=== PATIENT | female | born 1980 | race African-American/Black ===

== ENCOUNTER 2016-12-09 18:37 | Emergency (ER) | payer BC, OTHER ==
[~2016-12-09] VITALS: Ht 167.6 cm; Wt 98.9 kg
[2016-12-09] MEDS ORDERED: UNOBMED (18:41)
[2016-12-09] MEDS ORDERED: NS 250 ML IVPB ONE (19:15)
[2016-12-09] MEDS ORDERED: Metoclopramide 10mg/2ml Inj IVP ONE (19:15)
--- NOTE | 2016-12-09 19:20 | Emergency Room Report ---
History of Present Illness General Chief Complaint: Vomiting Source: Patient (Dyana Patricia) Present Illness HPI 36 YO Female presents to the ED c/o N/V 06/14 migraine since this am. with hx of cyclical vomiting syndrome, and migraine . Pt noted to have hx of HTN and states she was just recently put onto BP medication unknown name. pt. states she is seen by Dr. Murrieta at [facility], and is RX'd Amitryptiline and Zofran/Reglan regularly. denies fevers or chills. reports last migraine was 3 days ago, and last ED visit was last week. pt. denies recent travel or contacts with similar symptoms. LMP 2 weeks ago. denies . no rashes. DOWNEY is pulsatile located frontally Pt states N/V preceded migraine DOWNEY. Reports progressive onset , and states DOWNEY is characteristic of her normal migraine DOWNEY's. Denies trauma. Denies CP, Palpitations, LOC, AMS, dizziness, Changes in Vision, Sensation, paresthesias, or a sudden onset severe headache. (Dyana Patricia) Allergies: Coded Allergies: NITROFURANTOIN (Verified Allergy, Unknown, 12/09/16) Patient History Past Medical History: see triage record Past Surgical History: none Pertinent Family History: none Last Menstrual Period: 2 weeks ago Now: No : 7 Para: 1 Reviewed Nursing Documentation: PMH: Agreed, PSxH: Agreed (Dyana Patricia) Nursing Documentation-PMH Past Medical History: No History, Except For Hx Hypertension: Yes Hx Diabetes: Yes - DM2 (Dyana Patricia) Review of Systems All Other Systems: negative except mentioned in HPI (Dyana Patricia) Physical Exam Vital Signs Date Time Temp Pulse Resp B/P Pulse Ox O2 Delivery O2 Flow Rate FiO2 12/09/16 18:37 98.2 109 18 183/117 98 Room Air Sp02 EP Interpretation: abnormal - tachycardic and HTN General Appearance: GCS 15, mild distress Head: normocephalic, atraumatic Eyes: bilateral eye EOMI, bilateral eye PERRL, bilateral eye normal inspection ENT: hearing grossly normal, normal pharynx, no angioedema, normal voice Neck: full range of motion, no meningismus, no bony tend, supple/symm/no masses Respiratory: lungs clear, normal breath sounds, speaking full sentences Cardiovascular #1: regular rate, rhythm, no edema Gastrointestinal: normal bowel sounds, soft, no guarding, no rebound, other - epigastric TTP, abdomen is soft. Rectal: deferred Musculoskeletal: back normal, gait/station normal, normal range of motion, non- tender, no calf tenderness Neurologic: alert, oriented x3, responsive, motor strength/tone normal, sensory intact, speech normal Psychiatric: judgement/insight normal, memory normal, mood/affect normal Skin: normal color, no rash, warm/dry, well hydrated Lymphatic: no adenopathy (Dyana Patricia) Medical Decision Making PA Attestation Dr. moody is my supervising Physician whom patient management has been discussed with. (Dyana Patricia PGill) Diagnostic Impression: Primary Impression: Vomiting Qualified Codes: G43.A0 - Cyclical vomiting, not intractable Additional Impression: Migraine Qualified Codes: G43.001 - Migraine without aura, not intractable, with status migrainosus ER Course 36 YO Female presents to the ED c/o N/V 06/14 migraine since this am. with hx of cyclical vomiting syndrome, and migraine . Pt noted to have hx of HTN and states she was just recently put onto BP medication unknown name. pt. states she is seen by Dr. Murrieta at [facility], and is RX'd Amitryptiline and Zofran/Reglan regularly. -Denies fevers or chills. reports last migraine was 3 days ago, and last ED visit was last week. pt. denies recent travel or contacts with similar symptoms. LMP 2 weeks ago. Denies . no rashes. DOWNEY is pulsatile located frontally -Pt states N/V preceded migraine DOWNEY. Reports progressive onset, and states DOWNEY is characteristic of her normal migraine DOWNEY's. Denies trauma. Ddx considered but are not limited to migraine, HTN urgency/emergency, CVA, Diverticulitis, acute appy, diarrhea,UC, PUD, GE, pancreatitis, gallstone Vital signs: pt. is afebrile, Tachycardic and hypertensive- H&PE are most consistent with Hypovolemia and diarrhea ORDERS: CBC, CMP: elevated WBC's at 14.8, elevated glucose at 180, low chloride. - lipase is unremarkable. - UA: 3+ ketones, no wbc's or bacteria -Urine Hcg: Negative. ED INTERVENTIONS: - 10mg Hydralazine -10mg Reglan IV - 30mg IV Toradol -4mg morphine IV - 4 mg Zofran IV Disposition: Pt. is signed out to Dr. Hall who will continue pt. care management. Labs Test 12/09/16 18:56 12/09/16 19:15 Urine Color Pale yellow Urine Appearance Clear Urine pH 7 (4.5-8.0) Urine Specific [place] 1.010 (1.005-1.035) Urine Protein 2+ (NEGATIVE) Urine Glucose (UA) Negative (NEGATIVE) Urine Ketones 3+ (NEGATIVE) Urine Occult Blood 1+ (NEGATIVE) Urine Nitrite Negative (NEGATIVE) Urine Bilirubin Negative (NEGATIVE) Urine Urobilinogen Normal MG/DL (0.0-1.0) Urine Leukocyte Esterase 1+ (NEGATIVE) Urine RBC 2-4 /HPF (0 - 2) Urine WBC 0-2 /HPF (0 - 2) Urine Squamous Epithelial Cells Few /LPF (NONE/OCC) Urine Bacteria Few /HPF (NONE) Urine Opiates Screen Negative (NEGATIVE) Urine Barbiturates Screen Negative (NEGATIVE) Phencyclidine (PCP) Screen Negative (NEGATIVE) Urine Amphetamines Screen Negative (NEGATIVE) Urine Benzodiazepines Screen Negative (NEGATIVE) Urine Cocaine Screen Negative (NEGATIVE) Urine Marijuana (THC) Screen Negative (NEGATIVE) White Blood Count 14.8 K/UL (4.8-10.8) Red Blood Count 4.55 M/UL (4.20-5.40) Hemoglobin 14.5 G/DL (12.0-16.0) Hematocrit 40.4 % (37.0-47.0) Mean Corpuscular Volume 89 FL (80-99) Mean Corpuscular Hemoglobin 31.8 PG (27.0-31.0) Mean Corpuscular Hemoglobin Concent 35.8 G/DL (32.0-36.0) Red Cell Distribution Width 12.6 % (11.6-14.8) Platelet Count 364 K/UL (150-450) Mean Platelet Volume 6.6 FL (6.5-10.1) Neutrophils (%) (Auto) 78.6 % (45.0-75.0) Lymphocytes (%) (Auto) 13.1 % (20.0-45.0) Monocytes (%) (Auto) 4.5 % (1.0-10.0) Eosinophils (%) (Auto) 3.0 % (0.0-3.0) Basophils (%) (Auto) 0.8 % (0.0-2.0) Sodium Level 134 mEQ/L (135-145) Potassium Level 4.0 mEQ/L (3.4-4.9) Chloride Level 92 mEQ/L (98-107) Carbon Dioxide Level 22 mEQ/L (20-30) Anion Gap 20 (5-15) Blood Urea Nitrogen 11 mg/dL (7-23) Creatinine 1.0 mg/dL (0.5-0.9) Estimat Glomerular Filtration Rate > 60 mL/min (>60) Glucose Level 180 mg/dL (74-106) Calcium Level 9.8 mg/dL (8.6-10.2) Total Bilirubin 0.5 mg/dL (0.0-1.2) Aspartate Amino Transf (AST/SGOT) 20 U/L (5-40) Alanine Aminotransferase (ALT/SGPT) 23 U/L (3-33) Alkaline Phosphatase 117 U/L (35-104) Total Protein 9.7 g/dL (6.6-8.7) Albumin 4.7 g/dL (3.5-5.2) Globulin 5.0 g/dL Albumin/Globulin Ratio 0.9 (1.0-2.7) Lipase 41 U/L (< 60) (Dyana Patricia P.A.) ER Course The patient was noted to have continued pain and vomiting. The patient remained tachycardic while emergency department. The patient was given IV fluids. As well as IV Benadryl and Reglan. Patient was noted to have some improvement. The patient be admitted to the hospital for further IV hydration. Patient noted have elevated white blood count. She no evidence of urinary tract infection.Patient was discussed with O physician for [facility] and agreed accept patient in transfer. Labs Test 12/09/16 18:56 12/09/16 19:15 Urine Color Pale yellow Urine Appearance Clear Urine pH 7 (4.5-8.0) Urine Specific [place] 1.010 (1.005-1.035) Urine Protein 2+ (NEGATIVE) Urine Glucose (UA) Negative (NEGATIVE) Urine Ketones 3+ (NEGATIVE) Urine Occult Blood 1+ (NEGATIVE) Urine Nitrite Negative (NEGATIVE) Urine Bilirubin Negative (NEGATIVE) Urine Urobilinogen Normal MG/DL (0.0-1.0) Urine Leukocyte Esterase 1+ (NEGATIVE) Urine RBC 2-4 /HPF (0 - 2) Urine WBC 0-2 /HPF (0 - 2) Urine Squamous Epithelial Cells Few /LPF (NONE/OCC) Urine Bacteria Few /HPF (NONE) Urine Opiates Screen Negative (NEGATIVE) Urine Barbiturates Screen Negative (NEGATIVE) Phencyclidine (PCP) Screen Negative (NEGATIVE) Urine Amphetamines Screen Negative (NEGATIVE) Urine Benzodiazepines Screen Negative (NEGATIVE) Urine Cocaine Screen Negative (NEGATIVE) Urine Marijuana (THC) Screen Negative (NEGATIVE) White Blood Count 14.8 K/UL (4.8-10.8) Red Blood Count 4.55 M/UL (4.20-5.40) Hemoglobin 14.5 G/DL (12.0-16.0) Hematocrit 40.4 % (37.0-47.0) Mean Corpuscular Volume 89 FL (80-99) Mean Corpuscular Hemoglobin 31.8 PG (27.0-31.0) Mean Corpuscular Hemoglobin Concent 35.8 G/DL (32.0-36.0) Red Cell Distribution Width 12.6 % (11.6-14.8) Platelet Count 364 K/UL (150-450) Mean Platelet Volume 6.6 FL (6.5-10.1) Neutrophils (%) (Auto) 78.6 % (45.0-75.0) Lymphocytes (%) (Auto) 13.1 % (20.0-45.0) Monocytes (%) (Auto) 4.5 % (1.0-10.0) Eosinophils (%) (Auto) 3.0 % (0.0-3.0) Basophils (%) (Auto) 0.8 % (0.0-2.0) Sodium Level 134 mEQ/L (135-145) Potassium Level 4.0 mEQ/L (3.4-4.9) Chloride Level 92 mEQ/L (98-107) Carbon Dioxide Level 22 mEQ/L (20-30) Anion Gap 20 (5-15) Blood Urea Nitrogen 11 mg/dL (7-23) Creatinine 1.0 mg/dL (0.5-0.9) Estimat Glomerular Filtration Rate > 60 mL/min (>60) Glucose Level 180 mg/dL (74-106) Calcium Level 9.8 mg/dL (8.6-10.2) Total Bilirubin 0.5 mg/dL (0.0-1.2) Aspartate Amino Transf (AST/SGOT) 20 U/L (5-40) Alanine Aminotransferase (ALT/SGPT) 23 U/L (3-33) Alkaline Phosphatase 117 U/L (35-104) Total Protein 9.7 g/dL (6.6-8.7) Albumin 4.7 g/dL (3.5-5.2) Globulin 5.0 g/dL Albumin/Globulin Ratio 0.9 (1.0-2.7) Lipase 41 U/L (< 60) (Juan Hall) Last Vital Signs Date Time Temp Pulse Resp B/P Pulse Ox O2 Delivery O2 Flow Rate FiO2 12/09/16 18:37 98.2 109 18 183/117 98 Room Air (Dyana Patricia P.ANatividad) Status: unchanged (Juan Hall) Disposition: XFER SHT-TRM HOSP Condition: Serious Signed Out To: Dr. Hall (Dyana Patricia P.ANatividad) Scripts Acetamin/Butalbital/Caffeine* (FIORICET*) 1 Ea Tab 1 TAB ORAL Q6H, #15 TAB 0 Refills Prov: Juan Hall 12/09/16 Ondansetron Odt* (ZOFRAN ODT*) 4 Mg Tab.rapdis 4 MG ORAL Q6H Y for Nausea & Vomiting, #30 TAB 0 Refills Prov: Juan Hall 12/09/16 Dyana Patricia PGill Dec 09, 2016 19:20 Juan Hall Dec 10, 2016 03:15
[2016-12-09 19:49] LABS: BASOPHILS % (AUTO) 0.8 % (0.0-2.0); LYMPHOCYTES % (AUTO) 13.1 % (20.0-45.0); MEAN CORPUSCULAR HEMOGLOBIN 31.8 PG (27.0-31.0); MEAN CORPUSCULAR HGB CONC 35.8 G/DL (32.0-36.0); MEAN CORPUSCULAR VOLUME 89 FL (80-99); MEAN PLATELET VOLUME 6.6 FL (6.5-10.1); MONOCYTES % (AUTO) 4.5 % (1.0-10.0); NEUTROPHILS % (AUTO) 78.6 % (45.0-75.0); PLATELET COUNT 364 K/UL (150-450); RED BLOOD COUNT 4.55 M/UL (4.20-5.40); RED CELL DISTRIBUTION WIDTH 12.6 % (11.6-14.8); WHITE BLOOD COUNT 14.8 K/UL (4.8-10.8)
[2016-12-09 19:54] LABS: APPEARANCE,URINE CLEAR; KETONES,URINE 3+ (NEGATIVE); LEUKOCYTE ESTERASE ,URINE 1+ (NEGATIVE); NITRITE,URINE NEGATIVE (NEGATIVE); PH,URINE 7 (4.5-8.0); PROTEIN,URINE 2+ (NEGATIVE); UROBILINOGEN,URINE NORMAL MG/DL (0.0-1.0)
[2016-12-09 20:03] LABS: ALANINE AMINOTRANSFERASE 23 U/L (3-33); ALBUMIN/GLOBULIN RATIO 0.9 (1.0-2.7); ANION GAP 20 (5-15); ASPARTATE AMINO TRANSFERASE 20 U/L (5-40); CALCIUM 9.8 mg/dL (8.6-10.2); CARBON DIOXIDE 22 mEQ/L (20-30); CHLORIDE 92 mEQ/L (98-107); GLOMERULAR FILTRATION RATE > 60 mL/min (>60); HEMOLYSIS 2; LIPASE 41 U/L (< 60); SODIUM 134 mEQ/L (135-145); TOTAL PROTEIN 9.7 g/dL (6.6-8.7)
[2016-12-09 20:08] LABS: BACTERIA,URINE FEW /HPF; SQUAMOUS EPITHELIAL CELL,UR FEW /LPF (NONE/OCC); WBC,URINE 0-2 /HPF (0 - 2)
[2016-12-09 20:22] VITALS: BP 198/128
[2016-12-09] MEDS ORDERED: Ketorolac 30mg Inj IV ONE (20:30)
[2016-12-09 20:49] VITALS: BP 147/86
[2016-12-09] MEDS ORDERED: DiphenhydrAMINE 50mg/ml Inj IVP ONE (21:15)
[2016-12-09] MEDS ORDERED: Morphine Sulfate 4mg/ml Inj IVP ONE (21:15)
[2016-12-09 22:16] VITALS: BP 121/69
[2016-12-09] MEDS: D5 1/2NS 1,000 ML IV SCH (22:21)
[2016-12-09] MEDS ORDERED: FIORICET1 EA ORAL (22:33)
[2016-12-09] MEDS ORDERED: ZOFRAN ODT4 MG ORAL (22:33)
[2016-12-09 23:13] VITALS: BP 111/67
[2016-12-10] VITALS (7 sets, daily range): BP systolic 100–139; BP diastolic 52–92
[2016-12-10] MEDS ORDERED: DiphenhydrAMINE 50mg/ml Inj IVP ONE (02:30)
[2016-12-10] MEDS ORDERED: Metoclopramide 10mg/2ml Inj IVP ONE (02:30)
[2016-12-10] MEDS: D5 1/2NS 1,000 ML IV SCH (06:20)
--- NOTE | 2016-12-10 15:16 | Diagnostic Imaging Report ---
Indication: PAIN Technique: One view of the chest Comparison: none Findings: Lungs and pleural spaces are clear. Heart size is normal . There is a left arm catheter, tip of which terminates in the left innominate vein Impression: No acute process
== END 2016-12-10 09:34 | disposition short-term general hospital (02) ==
LOC: EDBD 18:37 → EMR 19:36
DX: G43.A0 Cyclical vomiting, in migraine, not intractable (principal); G43.909 Migraine, unspecified, not intractable, without status migrainosus; I10 Essential (primary) hypertension; E11.9 Type 2 diabetes mellitus without complications
CPT/HCPCS: 36415; 71010; 80053; 80300; 81003; 82962; 83690; 85025; 96360; 96374; 96375; 99285; J0360; J1200; J1885; J2270; J2405; J2765; J7050

== ENCOUNTER 2018-08-18 10:41 | Observation (INO) | payer BC, OTHER ==
[~2018-08-18] VITALS: Ht 167.6 cm; Wt 136.1 kg
[~2018-08-18 10:41] MED LIST: FIORICET1 EA ORAL; UNOBMED; ZOFRAN ODT4 MG ORAL
[2018-08-18 10:55] VITALS: BP 188/92
[2018-08-18] MEDS ORDERED: Isovue-300 100ml vial INJ PRN (11:15)
[2018-08-18 12:45] VITALS: BP 161/94
[2018-08-18] MEDS ORDERED: Lidocaine 1% Plain 30 ml INJ ONE (13:00)
[2018-08-18] MEDS ORDERED: Capsaicin 0.075% Cream TOPIC ONE (13:00)
[2018-08-18] MEDS ORDERED: Heparin 2000 units/Ns 1000ml INJ ONE (13:00)
[2018-08-18] MEDS: Ondansetron ODT 8mg tab ORAL ONE ×2 (13:00→13:54)
[2018-08-18 13:06] LABS: EOSINOPHILS % (AUTO) 6.5 % (0.0-3.0); HEMATOCRIT 37.5 % (37.0-47.0); HEMOGLOBIN 12.4 G/DL (12.0-16.0); LYMPHOCYTES % (AUTO) 12.3 % (20.0-45.0); MEAN CORPUSCULAR VOLUME 87 FL (80-99); MONOCYTES % (AUTO) 5.2 % (1.0-10.0); NEUTROPHILS % (AUTO) 75.1 % (45.0-75.0); PLATELET COUNT 349 K/UL (150-450); RED BLOOD COUNT 4.31 M/UL (4.20-5.40); RED CELL DISTRIBUTION WIDTH 11.6 % (11.6-14.8); WHITE BLOOD COUNT 10.8 K/UL (4.8-10.8)
[2018-08-18 13:19] LABS: ANION GAP 10 mmol/L (5-15); BLOOD UREA NITROGEN 12 mg/dL (7-18); CALCIUM 9.3 MG/DL (8.5-10.1); CARBON DIOXIDE 26 MMOL/L (21-32); CHLORIDE 100 MMOL/L (98-107); POTASSIUM 3.9 MMOL/L (3.5-5.1); SODIUM 136 MMOL/L (136-145)
[2018-08-18 13:24] LABS: ALANINE AMINOTRANSFERASE 29 U/L (12-78); ALBUMIN 3.3 G/DL (3.4-5.0); ALBUMIN/GLOBULIN RATIO 0.6 (1.0-2.7); ALKALINE PHOSPHATASE 105 U/L (46-116); ASPARTATE AMINO TRANSFERASE 21 U/L (15-37); BILIRUBIN,TOTAL 0.2 MG/DL (0.2-1.0)
[2018-08-18 14:04] LABS: APPEARANCE,URINE SLIGHTLY CLOUDY; BILIRUBIN, URINE NEGATIVE (NEGATIVE); COLOR,URINE PALE YELLOW; GLUCOSE, URINE (UA) NEGATIVE (NEGATIVE); KETONES,URINE NEGATIVE (NEGATIVE); LEUKOCYTE ESTERASE ,URINE NEGATIVE (NEGATIVE); NITRITE,URINE POSITIVE (NEGATIVE); PH,URINE 7 (4.5-8.0); PROTEIN,URINE 2+ (NEGATIVE); UROBILINOGEN,URINE NORMAL MG/DL (0.0-1.0)
--- NOTE | 2018-08-18 15:40 | Diagnostic Imaging Report ---
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 The right upper extremity was prepped with alcohol. All elements of maximal sterile barrier technique were followed including usage of a cap, mask, sterile gown, sterile gloves, hand hygiene and a large sterile sheet. Sonographic evaluation of the upper extremity was performed demonstrating a patent and compressible basilic vein. Access was obtained under real-time ultrasound guidance (with utilization of sterile gel and sterile probe cover) and digital image was saved and archived. An .018 wire was introduced. Needle exchanged for a 5 Beninese peel-away sheath. Measurements were obtained. A 5 [place]inese dual-lumen Power PICC line catheter was cut to 40 cm and introduced over the wire. Peel-away sheath and wire were removed.Catheter was secured to the skin using 2-0 Prolene suture. Both ports aspirate and flush easily. Fluoroscopic images show distal tip in the superior vena cava. Total fluoroscopic time 51 seconds Impression: Successful placement of an upper extremity PICC line catheter
[2018-08-18 16:13] VITALS: BP 179/73
[2018-08-18] MEDS ORDERED: Morphine Sulfate 4mg/ml Inj (IV/IM USE ONLY) IVP ONE ×2 (16:15→17:45)
--- NOTE | 2018-08-18 16:18 | Emergency Room Report ---
History of Present Illness General Chief Complaint: Abdominal Pain Source: Patient, Medical Record Present Illness HPI This patient reports that she has a history of cyclic vomiting syndrome. She complains of abdominal pain and back pain that is 10 severe for the past day. She states she cannot tolerate even water orally. She denies recent illness. She denies fever or chills. She denies headache or neck pain. She denies chest pain or shortness of breath. She has no other complaints. Allergies: Coded Allergies: NITROFURANTOIN (Verified Allergy, Unknown, 12/09/16) Patient History Past Medical History: see triage record, DM, HTN, psych hx, other - cyclic vomiting syndrome Social History: Reports: drug use - THC; Denies: smoking, alcohol use Last Menstrual Period: miscarriage last month Reviewed Nursing Documentation: PMH: Agreed; PSxH: Agreed Nursing Documentation-PMH Past Medical History: No History, Except For Hx Hypertension: Yes Hx Diabetes: Yes - DM2 Review of Systems All Other Systems: negative except mentioned in HPI Physical Exam Vital Signs Date Time Temp Pulse Resp B/P (MAP) Pulse Ox O2 Delivery O2 Flow Rate FiO2 08/18/18 10:47 97.5 98 18 165/117 100 Room Air Sp02 EP Interpretation: reviewed, normal General Appearance: no apparent distress, alert, GCS 15, non-toxic, other - Actively vomiting Head: normocephalic, atraumatic Eyes: bilateral eye normal inspection, bilateral eye PERRL ENT: hearing grossly normal, normal pharynx, no angioedema, normal voice Neck: full range of motion, supple/symm/no masses Respiratory: chest non-tender, lungs clear, normal breath sounds, no respiratory distress, no retraction, no accessory muscle use, speaking full sentences Cardiovascular #1: regular rate, rhythm, no edema Gastrointestinal: normal bowel sounds, soft, non-distended, no guarding, no rebound, tenderness - Diffusely TTP Rectal: deferred Musculoskeletal: back normal, gait/station normal, normal range of motion, non- tender Neurologic: alert, oriented x3, responsive, motor strength/tone normal, sensory intact, speech normal Psychiatric: judgement/insight normal, memory normal, mood/affect normal, no suicidal/homicidal ideation Skin: normal color, no rash, warm/dry, well hydrated Medical Decision Making Diagnostic Impression: Primary Impression: Abdominal pain Additional Impression: Cyclical vomiting syndrome ER Course I suspect this patient has cyclic vomiting syndrome versus cannabis hyperemesis syndrome. She was given Zofran and morphine in the ED. I also placed capsaican cream on her abdomen to treat for cannabis hyperemesis syndrome. The patient was a very difficult IV stick and so a PICC line was ordered given the ongoing vomiting. The patient also had diffuse abdominal pain. Patient's hCG was 11. The patient reports that she had a miscarriage last month. I suspect the hCG was residual. The patient was pending CT abdomen and pelvis admission to the hospital at the time of this dictation. The CT abdomen and pelvis will be followed up by the accepting emergency physician or the inpatient physician. The patient is admitted for further monitoring and treatment. Laboratory Tests Test 08/18/18 12:40 08/18/18 13:40 White Blood Count 10.8 K/UL (4.8-10.8) Red Blood Count 4.31 M/UL (4.20-5.40) Hemoglobin 12.4 G/DL (12.0-16.0) Hematocrit 37.5 % (37.0-47.0) Mean Corpuscular Volume 87 FL (80-99) Mean Corpuscular Hemoglobin 28.8 PG (27.0-31.0) Mean Corpuscular Hemoglobin Concent 33.2 G/DL (32.0-36.0) Red Cell Distribution Width 11.6 % (11.6-14.8) Platelet Count 349 K/UL (150-450) Mean Platelet Volume 6.0 FL (6.5-10.1) L Neutrophils (%) (Auto) 75.1 % (45.0-75.0) H Lymphocytes (%) (Auto) 12.3 % (20.0-45.0) L Monocytes (%) (Auto) 5.2 % (1.0-10.0) Eosinophils (%) (Auto) 6.5 % (0.0-3.0) H Basophils (%) (Auto) 1.0 % (0.0-2.0) Sodium Level 136 MMOL/L (136-145) Potassium Level 3.9 MMOL/L (3.5-5.1) Chloride Level 100 MMOL/L (98-107) Carbon Dioxide Level 26 MMOL/L (21-32) Anion Gap 10 mmol/L (5-15) Blood Urea Nitrogen 12 mg/dL (7-18) Creatinine 1.0 MG/DL (0.55-1.30) Estimate Glomerular Filtration Rate > 60 mL/min (>60) Glucose Level 100 MG/DL (74-106) Calcium Level 9.3 MG/DL (8.5-10.1) Total Bilirubin 0.2 MG/DL (0.2-1.0) Aspartate Amino Transferase (AST) 21 U/L (15-37) Alanine Aminotransferase (ALT) 29 U/L (12-78) Alkaline Phosphatase 105 U/L (46-116) Total Protein 9.0 G/DL (6.4-8.2) H Albumin 3.3 G/DL (3.4-5.0) L Globulin 5.7 g/dL Albumin/Globulin Ratio 0.6 (1.0-2.7) L Lipase 161 U/L (73-393) Human Chorionic Gonadotropin, Quant 11 mIU/mL (1-6) H Urine Color Pale yellow Urine Appearance Slightly cloudy Urine pH 7 (4.5-8.0) Urine Specific [place] 1.010 (1.005-1.035) Urine Protein 2+ (NEGATIVE) H Urine Glucose (UA) Negative (NEGATIVE) Urine Ketones Negative (NEGATIVE) Urine Blood 1+ (NEGATIVE) H Urine Nitrite Positive (NEGATIVE) H Urine Bilirubin Negative (NEGATIVE) Urine Urobilinogen Normal MG/DL (0.0-1.0) Urine Leukocyte Esterase Negative (NEGATIVE) Urine RBC 2-4 /HPF (0 - 2) H Urine WBC 2-4 /HPF (0 - 2) Urine Squamous Epithelial Cells Many /LPF (NONE/OCC) H Urine Bacteria Many /HPF (NONE) H Urine Opiates Screen Negative (NEGATIVE) Urine Barbiturates Screen Negative (NEGATIVE) Phencyclidine (PCP) Screen Negative (NEGATIVE) Urine Amphetamines Screen Negative (NEGATIVE) Urine Benzodiazepines Screen Negative (NEGATIVE) Urine Cocaine Screen Negative (NEGATIVE) Urine Marijuana (THC) Screen Negative (NEGATIVE) CT/MRI/US Diagnostic Results CT/MRI/US Diagnostic Results : Imaging Test Ordered: CT abd/pelvis Impression Pending Last Vital Signs Date Time Temp Pulse Resp B/P (MAP) Pulse Ox O2 Delivery O2 Flow Rate FiO2 08/18/18 16:13 93 17 179/73 100 Room Air 08/18/18 10:55 97.5 Disposition: ADMITTED INPATIENT Condition: Serious Scripts Ondansetron (Zofran) 4 Mg Tablet 4 MG ORAL Q6H PRN for 7 Days, #30 TAB 0 Refills Prov: Soraya Ivy MD 08/19/18 Amoxicillin/Potassium Clav 875-125* (AUGMENTIN 875-125 TABLET*) 1 Each Tablet 7 TAB ORAL TWICE A DAY for 7 Days, #14 TAB Prov: Soraya Ivy MD 08/19/18 Referrals: NON PHYSICIAN (PCP) Vivi Kingsley DO Aug 18, 2018 16:18
[2018-08-18] MEDS ORDERED: DiphenhydrAMINE 50mg/ml Inj IVP ONE (17:45)
[2018-08-18] MEDS ORDERED: AIMOVIG AU70 MG/1 ML SQ (18:09)
[2018-08-18] MEDS ORDERED: AMITRIPTYLINE H50 MG ORAL (18:09)
[2018-08-18] MEDS ORDERED: HUMALOG KW200 UNIT/1 SQ ×2 (18:10→18:17)
[2018-08-18] MEDS ORDERED: CYCLOBENZAPRINE5 MG ORAL (18:10)
[2018-08-18] MEDS ORDERED: METOCLOPRAMIDE H5 M1 ORAL (18:11)
[2018-08-18] MEDS ORDERED: SUMATRIPTAN SU100 MG PO (18:12)
[2018-08-18] MEDS ORDERED: VERAPAMIL ER240 MG ORAL (18:13)
[2018-08-18 18:31] VITALS: BP 178/73
[2018-08-18] MEDS ORDERED: Dyna-Hex 2% Top Sol 2oz TOPIC SCH (20:00)
[2018-08-18] MEDS: Pantoprazole Inj IVP SCH (20:01)
[2018-08-18] MEDS: HYDROmorphone 1mg/ml Carpuject IVP PRN (20:01)
[2018-08-18] MEDS: Metoclopramide 10mg/2ml Inj IVP SCH (20:01)
[2018-08-18 20:15] VITALS: BP 151/69
--- NOTE | 2018-08-18 21:16 | History and Physical ---
History of Present Illness General Date patient seen: Aug 18, 2018 Time patient seen: 21:09 Reason for Hospitalization: Abdominal Pain Present Illness HPI 38 yo female with no sig pmh presents with complaints of nausea and vomiting on and off for over a month. patient states she has miscarriage a month ago however has had these symptoms before this occured. Denies any fevers/chills. Denies any chest pain or sob. Denies abd pain, no diarrhea/constipation, denies dysuria. Denies any recent sick contacts. social hx: reviewed, denies smoking, drug use, or alcohol use fam hx reviewed, denies any sig past fam hx. code status: full code Allergies: Coded Allergies: NITROFURANTOIN (Verified Allergy, Unknown, 12/09/16) Medication History Scheduled Amitriptyline Hcl (Amitriptyline Hcl), 100 MG ORAL BEDTIME, (Reported) Cyclobenzaprine Hcl (Cyclobenzaprine Hcl), 5 MG ORAL THREE TIMES A DAY, ( Reported) Erenumab-Aooe (Aimovig Autoinjector), 140 MG SQ EVERY MONTH, (Reported) Insulin Lispro (Humalog Kwikpen), 10 UNIT SQ TID, (Reported) Verapamil Hcl* (Calan Sr*), 240 MG ORAL DAILY, (Reported) Scheduled PRN Metoclopramide Hcl* (Metoclopramide Hcl*), 10 MG ORAL EVERY 6 HOURS PRN for Nausea & Vomiting, (Reported) Sumatriptan Succinate (Sumatriptan Succinate), 100 MG PO DAILY PRN for MIGRAINES , (Reported) Discontinued Medications Acetamin/Butalbital/Caffeine* (Fioricet*), 1 TAB ORAL Q6H Discontinued Reason: discontinued med Ondansetron Odt* (Zofran Odt*), 4 MG ORAL Q6H PRN for Nausea & Vomiting Discontinued Reason: MD discontinued med Patient History History Provided By: Patient Healthcare decision maker Resuscitation status Advanced Directive on File Review of Systems All Other Systems: negative except mentioned in HPI ROS Narrative 12 point ROS negative except per HPI Physical Exam General Appearance: no apparent distress, alert, mild distress Lines, tubes and drains: peripheral HEENT: normocephalic, atraumatic, anicteric Neck: non-tender, normal alignment, supple, normal inspection Respiratory/Chest: chest wall non-tender, lungs clear, normal breath sounds, no respiratory distress Cardiovascular/Chest: normal peripheral pulses, normal rate, regular rhythm Abdomen: normal bowel sounds, non tender, soft, no organomegaly, no mass Extremities: normal range of motion, non-tender, normal inspection, no calf tenderness Skin Exam: normal pigmentation, warm/dry, cyanotic 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, no motor/sensory deficits, alert, oriented x 3, responsive, normal mood/affect Last 24 Hour Vital Signs Date Time Temp Pulse Resp B/P (MAP) Pulse Ox O2 Delivery O2 Flow Rate FiO2 08/18/18 20:36 97.5 81 18 151/69 100 Room Air 88 08/18/18 20:31 97.5 08/18/18 20:15 98.7 81 18 151/69 100 Room Air 08/18/18 18:31 88 16 178/73 100 08/18/18 16:42 97.5 08/18/18 16:13 93 17 179/73 100 Room Air 08/18/18 12:45 91 16 161/94 99 Room Air 08/18/18 10:55 97.5 97 13 188/92 100 Room Air 08/18/18 10:55 98 18 Room Air 08/18/18 10:47 97.5 98 18 165/117 100 Room Air Laboratory Tests Test 08/18/18 12:40 08/18/18 13:40 White Blood Count 10.8 K/UL (4.8-10.8) Red Blood Count 4.31 M/UL (4.20-5.40) Hemoglobin 12.4 G/DL (12.0-16.0) Hematocrit 37.5 % (37.0-47.0) Mean Corpuscular Volume 87 FL (80-99) Mean Corpuscular Hemoglobin 28.8 PG (27.0-31.0) Mean Corpuscular Hemoglobin Concent 33.2 G/DL (32.0-36.0) Red Cell Distribution Width 11.6 % (11.6-14.8) Platelet Count 349 K/UL (150-450) Mean Platelet Volume 6.0 FL (6.5-10.1) L Neutrophils (%) (Auto) 75.1 % (45.0-75.0) H Lymphocytes (%) (Auto) 12.3 % (20.0-45.0) L Monocytes (%) (Auto) 5.2 % (1.0-10.0) Eosinophils (%) (Auto) 6.5 % (0.0-3.0) H Basophils (%) (Auto) 1.0 % (0.0-2.0) Sodium Level 136 MMOL/L (136-145) Potassium Level 3.9 MMOL/L (3.5-5.1) Chloride Level 100 MMOL/L (98-107) Carbon Dioxide Level 26 MMOL/L (21-32) Anion Gap 10 mmol/L (5-15) Blood Urea Nitrogen 12 mg/dL (7-18) Creatinine 1.0 MG/DL (0.55-1.30) Estimat Glomerular Filtration Rate > 60 mL/min (>60) Glucose Level 100 MG/DL (74-106) Calcium Level 9.3 MG/DL (8.5-10.1) Total Bilirubin 0.2 MG/DL (0.2-1.0) Aspartate Amino Transf (AST/SGOT) 21 U/L (15-37) Alanine Aminotransferase (ALT/SGPT) 29 U/L (12-78) Alkaline Phosphatase 105 U/L (46-116) Total Protein 9.0 G/DL (6.4-8.2) H Albumin 3.3 G/DL (3.4-5.0) L Globulin 5.7 g/dL Albumin/Globulin Ratio 0.6 (1.0-2.7) L Lipase 161 U/L (73-393) Human Chorionic Gonadotropin, Quant 11 mIU/mL (1-6) H Urine Color Pale yellow Urine Appearance Slightly cloudy Urine pH 7 (4.5-8.0) Urine Specific [place] 1.010 (1.005-1.035) Urine Protein 2+ (NEGATIVE) H Urine Glucose (UA) Negative (NEGATIVE) Urine Ketones Negative (NEGATIVE) Urine Blood 1+ (NEGATIVE) H Urine Nitrite Positive (NEGATIVE) H Urine Bilirubin Negative (NEGATIVE) Urine Urobilinogen Normal MG/DL (0.0-1.0) Urine Leukocyte Esterase Negative (NEGATIVE) Urine RBC 2-4 /HPF (0 - 2) H Urine WBC 2-4 /HPF (0 - 2) Urine Squamous Epithelial Cells Many /LPF (NONE/OCC) H Urine Bacteria Many /HPF (NONE) H Urine Opiates Screen Negative (NEGATIVE) Urine Barbiturates Screen Negative (NEGATIVE) Phencyclidine (PCP) Screen Negative (NEGATIVE) Urine Amphetamines Screen Negative (NEGATIVE) Urine Benzodiazepines Screen Negative (NEGATIVE) Urine Cocaine Screen Negative (NEGATIVE) Urine Marijuana (THC) Screen Negative (NEGATIVE) Height (Feet): 5 Height (Inches): 6.00 Weight (Pounds): 300 Medications Current Medications Medications (Trade) Dose Ordered Sig/Shannan Route PRN Reason Start Time Stop Time Status Last Admin Dose Admin Chlorhexidine Gluconate (Corinne-Hex 2%) 1 applic DAILY@2000 TOPIC 08/18/18 20:00 09/17/18 19:59 Hydromorphone HCl (Dilaudid) 1 mg Q4H PRN IVP For Pain 08/18/18 18:00 08/25/18 17:59 08/18/18 20:01 Iopamidol (Isovue-300 100ml) 100 ml NOW PRN INJ Radiology Procedure 08/18/18 11:15 Metoclopramide HCl (Reglan) 10 mg BID IVP 08/18/18 18:00 09/17/18 17:59 08/18/18 20:01 Ondansetron HCl (Zofran) 8 mg EVERY 6 HOURS IVP 08/18/18 18:00 09/17/18 17:59 Pantoprazole (Protonix) 40 mg DAILY IVP 08/18/18 19:30 09/17/18 19:29 08/18/18 20:01 Sodium Chloride 1,000 ml @ 150 mls/hr Q6H40M IV 08/18/18 18:00 09/17/18 17:59 08/18/18 20:02 Assessment/Plan Problem List: (1) Cyclical vomiting syndrome ICD Codes: G43.A0 - Cyclical vomiting, not intractable SNOMED: 42095941 (2) Intractable abdominal pain ICD Codes: R10.9 - Unspecified abdominal pain SNOMED: 60655060, 896796674 (3) Dehydration ICD Codes: E86.0 - Dehydration SNOMED: 91372047 (4) Intractable nausea and vomiting ICD Codes: R11.2 - Nausea with vomiting, unspecified SNOMED: 898711743 Status: doing well, stable Assessment/Plan #Cyclical Vomiting #Intractable nausea and vomiting #Dehydration #Intractable abdominal pain - prn antiemetics, zofran 8mg q6hrs and started reglan IV prn as well - aggressive hydration due to dehydration - IV 1mg dilaudid prn for pain control for abdominal pain - UDS neg ppx: scd diet: adat DVT Prophylaxis: SCD Code Status: Full Admit to Observation status Hospital Classification Declaration: Based on this initial evaluation, and depending on the patient's clinical course, I anticipate that this patient will require hospitalization for 1 midngiht for intractable nausea and vomiting with abdominal pain requiring IV antiemetics and pain control Disposition: Once the patient is stable to leave the hospital, I anticipate the patient will likely be discharged to the following environment: home I spent 72 minutes on this patient's case, and 33 minutes were dedicated to counseling and/or care coordination. Discussed with patient/family, nursing staff, SW/CM regarding clinical status, treatment course, and disposition planning. Time of note may not reflect time of encounter. Soraya Ivy MD Aug 18, 2018 21:16
[2018-08-19] VITALS: BP 136/75
[2018-08-19] MEDS: HYDROmorphone 1mg/ml Carpuject IVP PRN ×3 (00:05→08:10)
[2018-08-19 04:00] VITALS: BP 126/58
[2018-08-19] MEDS: NovoLOG Insulin Flexpen SUBQ SCH ×2 (06:23→11:57)
[2018-08-19 07:21] LABS: ANION GAP 7 mmol/L (5-15); BLOOD UREA NITROGEN 7 mg/dL (7-18); CALCIUM 8.2 MG/DL (8.5-10.1); CARBON DIOXIDE 28 MMOL/L (21-32); CHLORIDE 99 MMOL/L (98-107); POTASSIUM 3.6 MMOL/L (3.5-5.1); SODIUM 134 MMOL/L (136-145)
[2018-08-19] MEDS: Pantoprazole Inj IVP SCH (08:09)
[2018-08-19] MEDS: Metoclopramide 10mg/2ml Inj IVP SCH (08:09)
[2018-08-19 08:33] VITALS: BP 143/90
[2018-08-19 08:50] LABS: BASOPHILS % (AUTO) 0.9 % (0.0-2.0); EOSINOPHILS % (AUTO) 6.5 % (0.0-3.0); HEMATOCRIT 33.4 % (37.0-47.0); HEMOGLOBIN 11.1 G/DL (12.0-16.0); LYMPHOCYTES % (AUTO) 14.7 % (20.0-45.0); MEAN CORPUSCULAR VOLUME 87 FL (80-99); MONOCYTES % (AUTO) 5.4 % (1.0-10.0); NEUTROPHILS % (AUTO) 72.4 % (45.0-75.0); PLATELET COUNT 345 K/UL (150-450); RED BLOOD COUNT 3.85 M/UL (4.20-5.40); RED CELL DISTRIBUTION WIDTH 11.2 % (11.6-14.8)
[2018-08-19] MEDS ORDERED: ZOFRAN4 MG ORAL (11:31)
[2018-08-19] MEDS ORDERED: AUGMENTIN 875-1 EAC1 ORAL (11:31)
--- NOTE | 2018-08-19 11:34 | Discharge Summary ---
Discharge Summary Hospital Course Date of Admission Aug 18, 2018 at 17:24 Date of Discharge Admitting Diagnosis INTERACTABLE VOMITING HPI Gabbie Roth is a 38 year old female who was admitted on Aug 18, 2018 at 17:24 for Interactable Vomiting 38 yo female with no sig pmh presents with complaints of nausea and vomiting on and off for over a month. patient states she has miscarriage a month ago however has had these symptoms before this occured. Denies any fevers/chills. Denies any chest pain or sob. Denies abd pain, no diarrhea/constipation, denies dysuria. Denies any recent sick contacts. started on fluids and antiemetics patient improved drastically tolerating diet now denies any complaints no cp or sob patient stable for dc home Physical Exam General Appearance: no apparent distress, alert, mild distress Lines, tubes and drains: peripheral HEENT: normocephalic, atraumatic, anicteric Neck: non-tender, normal alignment, supple, normal inspection Respiratory/Chest: chest wall non-tender, lungs clear, normal breath sounds, no respiratory distress Cardiovascular/Chest: normal peripheral pulses, normal rate, regular rhythm Abdomen: normal bowel sounds, non tender, soft, no organomegaly, no mass Extremities: normal range of motion, non-tender, normal inspection, no calf tenderness Skin Exam: normal pigmentation, warm/dry, cyanotic 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, no motor/sensory deficits, alert, oriented x 3, responsive, normal mood/affect Hospital Course #Cyclical Vomiting #Intractable nausea and vomiting #Dehydration #Intractable abdominal pain - RESOLVED - prn antiemetics, zofran 8mg q6hrs and started reglan IV prn as well - aggressive hydration due to dehydration - IV 1mg dilaudid prn for pain control for abdominal pain - UDS neg ppx: scd diet: adat DVT Prophylaxis: SCD Code Status: Full I spent over 45 minutes on this patient's case and counseling and/or care coordination along with discharge coordination Time of note may not reflect time of encounter. Discharge Condition Upon Discharge: stable Discharge Disposition Patient was discharged to home Discharge Diagnoses: (1) Cyclical vomiting syndrome (2) Dehydration (3) Intractable nausea and vomiting (4) Abdominal pain Soraya Ivy MD Aug 19, 2018 11:34
[2018-08-19 12:00] VITALS: BP 158/97
== END 2018-08-19 13:42 | disposition home or self-care (01) ==
LOC: EMR 11:42 → 4E 17:24 → INTOOBSV 17:24 → EDBEDREQ 17:44 → 4E 08-19 04:45
DX: G43.A0 Cyclical vomiting, in migraine, not intractable (principal); E86.0 Dehydration; Z88.8 Allergy status to other drugs, medicaments and biological substances; E11.9 Type 2 diabetes mellitus without complications; Z79.4 Long term (current) use of insulin
CPT/HCPCS: 36415; 36569; 36592; 74177; 76937; 80048; 80053; 80307; 81003; 82962; 83036; 83690; 84702; 85025; 87086; 87181; 96360; 96361; 96374; 96375; 96376; 99285; G0378; J1815; J2405; J2765

== ENCOUNTER 2018-08-24 09:22 | Emergency (ER) | payer BC ==
[~2018-08-24] VITALS: Ht 167.6 cm; Wt 90.7 kg
[~2018-08-24 09:22] MED LIST changes: +AIMOVIG AU70 MG/1 ML SQ; +AMITRIPTYLINE H50 MG ORAL; +AUGMENTIN 875-1 EAC1 ORAL; +CYCLOBENZAPRINE5 MG ORAL; +HUMALOG KW200 UNIT/1 SQ; +METOCLOPRAMIDE H5 M1 ORAL; +SUMATRIPTAN SU100 MG PO; +VERAPAMIL ER240 MG ORAL; +ZOFRAN4 MG ORAL
[2018-08-24 09:40] VITALS: BP 176/78
[2018-08-24] MEDS ORDERED: Heparin 2000 units/Ns 1000ml INJ ONE (10:00)
[2018-08-24] MEDS ORDERED: Metoclopramide 10mg/2ml Inj IVP ONE (10:00)
[2018-08-24] MEDS ORDERED: Lidocaine 1% Plain 30 ml INJ ONE (10:00)
--- NOTE | 2018-08-24 10:02 | Emergency Room Report ---
History of Present Illness General Chief Complaint: Nausea Source: Patient Present Illness HPI This patient is well-known to [facility]. She has a history of cyclic vomiting syndrome. She is admitted regularly and the staff is not usually able to obtain IV access because the patient has then admitted to the hospital so many times and has venous scarring all over her arms. The patient also has a known history of narcotic dependence. She presents with the same symptoms of recurrent vomiting and unable to tolerate oral medications and abdominal pain. She was discharged from [facility] 4 days ago for the same symptoms. Allergies: Coded Allergies: NITROFURANTOIN (Verified Allergy, Unknown, 12/09/16) Patient History Past Medical History: see triage record, DM, other - cyclic vomiting syndrome, chronic abdominal pain Social History: Denies: smoking, alcohol use, drug use Now: No Reviewed Nursing Documentation: PMH: Agreed; PSxH: Agreed Nursing Documentation-PMH Past Medical History: No History, Except For Hx Hypertension: Yes Hx Diabetes: Yes - DM2 Review of Systems All Other Systems: negative except mentioned in HPI Physical Exam Vital Signs Date Time Temp Pulse Resp B/P (MAP) Pulse Ox O2 Delivery O2 Flow Rate FiO2 08/24/18 09:25 98.2 102 18 160/92 98 Room Air Sp02 EP Interpretation: reviewed, normal General Appearance: no apparent distress, alert, GCS 15, non-toxic Head: normocephalic, atraumatic Eyes: bilateral eye normal inspection, bilateral eye PERRL ENT: hearing grossly normal, normal pharynx, no angioedema, normal voice Neck: full range of motion, supple/symm/no masses Respiratory: chest non-tender, lungs clear, normal breath sounds, no respiratory distress, no retraction, no accessory muscle use, speaking full sentences Cardiovascular #1: regular rate, rhythm, no edema Gastrointestinal: normal bowel sounds, soft, non-distended, no guarding, no rebound, tenderness - TTP in the epigastrium Rectal: deferred Musculoskeletal: back normal, gait/station normal, normal range of motion, non- tender Neurologic: alert, oriented x3, responsive, motor strength/tone normal, sensory intact, speech normal Psychiatric: judgement/insight normal, memory normal, mood/affect normal, no suicidal/homicidal ideation Skin: normal color, no rash, warm/dry, well hydrated Medical Decision Making Diagnostic Impression: Primary Impression: Intractable nausea and vomiting ER Course This patient has a known history of cyclic vomiting syndrome. She presents again with recurrence of her symptoms. The patient also is a very difficult IV access. A PICC line was placed again. This patient may need to undergo Port-A- Cath placement given how often she is admitted to the hospital and the difficulty obtaining IV access on this patient. Patient was given IV hydration , antinausea medications, pain medications and admitted for further evaluation and treatment. The patient's insurance company requested her transfer to [facility]. The patient is stable for transfer. I spoke with the accepting physician who is very familiar with this patient. Laboratory Tests Test 08/24/18 09:40 08/24/18 11:51 Urine Color Pale yellow Urine Appearance Clear Urine pH 7 (4.5-8.0) Urine Specific [place] 1.010 (1.005-1.035) Urine Protein 2+ (NEGATIVE) H Urine Glucose (UA) Negative (NEGATIVE) Urine Ketones Negative (NEGATIVE) Urine Blood 2+ (NEGATIVE) H Urine Nitrite Negative (NEGATIVE) Urine Bilirubin Negative (NEGATIVE) Urine Urobilinogen Normal MG/DL (0.0-1.0) Urine Leukocyte Esterase 1+ (NEGATIVE) H Urine RBC 2-4 /HPF (0 - 2) H Urine WBC 2-4 /HPF (0 - 2) Urine Squamous Epithelial Cells Few /LPF (NONE/OCC) Urine Bacteria Occasional /HPF (NONE) Urine Opiates Screen Negative (NEGATIVE) Urine Barbiturates Screen Negative (NEGATIVE) Phencyclidine (PCP) Screen Negative (NEGATIVE) Urine Amphetamines Screen Negative (NEGATIVE) Urine Benzodiazepines Screen Negative (NEGATIVE) Urine Cocaine Screen Negative (NEGATIVE) Urine Marijuana (THC) Screen Negative (NEGATIVE) White Blood Count 9.5 K/UL (4.8-10.8) Red Blood Count 3.84 M/UL (4.20-5.40) L Hemoglobin 11.4 G/DL (12.0-16.0) L Hematocrit 34.4 % (37.0-47.0) L Mean Corpuscular Volume 90 FL (80-99) Mean Corpuscular Hemoglobin 29.5 PG (27.0-31.0) Mean Corpuscular Hemoglobin Concent 33.0 G/DL (32.0-36.0) Red Cell Distribution Width 11.2 % (11.6-14.8) L Platelet Count 378 K/UL (150-450) Mean Platelet Volume 5.4 FL (6.5-10.1) L Neutrophils (%) (Auto) 67.1 % (45.0-75.0) Lymphocytes (%) (Auto) 16.5 % (20.0-45.0) L Monocytes (%) (Auto) 5.5 % (1.0-10.0) Eosinophils (%) (Auto) 9.6 % (0.0-3.0) H Basophils (%) (Auto) 1.3 % (0.0-2.0) Sodium Level 132 MMOL/L (136-145) L Potassium Level 4.1 MMOL/L (3.5-5.1) Chloride Level 98 MMOL/L (98-107) Carbon Dioxide Level 28 MMOL/L (21-32) Anion Gap 6 mmol/L (5-15) Blood Urea Nitrogen 11 mg/dL (7-18) Creatinine 1.0 MG/DL (0.55-1.30) Estimate Glomerular Filtration Rate > 60 mL/min (>60) Glucose Level 199 MG/DL (74-106) H Calcium Level 8.7 MG/DL (8.5-10.1) Total Bilirubin 0.2 MG/DL (0.2-1.0) Aspartate Amino Transferase (AST) 17 U/L (15-37) Alanine Aminotransferase (ALT) 29 U/L (12-78) Alkaline Phosphatase 113 U/L (46-116) Total Protein 7.9 G/DL (6.4-8.2) Albumin 2.9 G/DL (3.4-5.0) L Globulin 5.0 g/dL Albumin/Globulin Ratio 0.6 (1.0-2.7) L Lipase 197 U/L (73-393) Human Chorionic Gonadotropin, Quant 7 mIU/mL (1-6) H Last Vital Signs Date Time Temp Pulse Resp B/P (MAP) Pulse Ox O2 Delivery O2 Flow Rate FiO2 08/24/18 09:40 97.1 98 17 176/78 100 Room Air Status: improved Disposition: XFER SHT-TRM HOSP Condition: Stable Referrals: NON PHYSICIAN (PCP) Vivi Kingsley DO Aug 24, 2018 10:02
[2018-08-24 10:10] LABS: APPEARANCE,URINE CLEAR; BILIRUBIN, URINE NEGATIVE (NEGATIVE); COLOR,URINE PALE YELLOW; GLUCOSE, URINE (UA) NEGATIVE (NEGATIVE); KETONES,URINE NEGATIVE (NEGATIVE); LEUKOCYTE ESTERASE ,URINE 1+ (NEGATIVE); NITRITE,URINE NEGATIVE (NEGATIVE); PH,URINE 7 (4.5-8.0); PROTEIN,URINE 2+ (NEGATIVE); UROBILINOGEN,URINE NORMAL MG/DL (0.0-1.0)
--- NOTE | 2018-08-24 11:40 | Pre-Procedure Note/Attestation ---
Pre-Procedure Note/Attestation Complete Prior to Procedure Planned Procedure: not applicable Indications for Procedure Pre-Operative Diagnosis: lack of iv access Attestation I attest that I discussed the nature of the procedure; its benefits; risks and complications; and alternatives (and the risks and benefits of such alternatives ), prior to the procedure, with the patient (or the patient's legal solar manufacturer's representative). I attest that I re-evaluated the patient just prior to the surgery and that there has been no change in the patient's H&P, except as documented below: Malcom Dawn M.D. Aug 24, 2018 11:40
--- NOTE | 2018-08-24 11:54 | Diagnostic Imaging Report ---
Indications: Needs long-term IV access Technique: Ultrasound confirms patent compressible right brachial vein. Total sterile technique, including sterile probe cover and sterile gel, hat, mask,, sterile gown, large sterile drape, and preparation with 2% chlorhexidine utilized. Local anesthesia with 1% lidocaine. Under real-time ultrasound guidance, puncture right brachial vein using 21-gauge needle, documented and archived, passage 0.018 guidewire under direct fluoroscopy, which was used to determine appropriate catheter length, exchange for 5 Mosotho peel-away sheath. 5 Mosotho dual-lumen power PICC cut to 40 cm. It was inserted through the peel-away sheath. Peel-away sheath and guidewire removed. Catheter fixed to the skin. Both catheter ports aspirated and flushed. Patient tolerated procedure well, without immediate complication. Digital radiograph documents satisfactory catheter tip position, at the lower superior vena cava. Total fluoroscopy time 80.6 seconds. Total fluoroscopy dose 3.36 mGy. Impression: Successful placement of 5 Mosotho double-lumen PICC under sonographic and fluoroscopic guidance, as described above.
[2018-08-24 12:00] VITALS: BP 168/97
[2018-08-24 12:20] LABS: ANION GAP 6 mmol/L (5-15); BLOOD UREA NITROGEN 11 mg/dL (7-18); CALCIUM 8.7 MG/DL (8.5-10.1); CARBON DIOXIDE 28 MMOL/L (21-32); CHLORIDE 98 MMOL/L (98-107); POTASSIUM 4.1 MMOL/L (3.5-5.1); SODIUM 132 MMOL/L (136-145)
[2018-08-24 12:27] LABS: ALANINE AMINOTRANSFERASE 29 U/L (12-78); ALBUMIN 2.9 G/DL (3.4-5.0); ALBUMIN/GLOBULIN RATIO 0.6 (1.0-2.7); ALKALINE PHOSPHATASE 113 U/L (46-116); ASPARTATE AMINO TRANSFERASE 17 U/L (15-37); BILIRUBIN,TOTAL 0.2 MG/DL (0.2-1.0)
[2018-08-24 12:37] LABS: BASOPHILS % (AUTO) 1.3 % (0.0-2.0); EOSINOPHILS % (AUTO) 9.6 % (0.0-3.0); HEMATOCRIT 34.4 % (37.0-47.0); HEMOGLOBIN 11.4 G/DL (12.0-16.0); LYMPHOCYTES % (AUTO) 16.5 % (20.0-45.0); MEAN CORPUSCULAR VOLUME 90 FL (80-99); MONOCYTES % (AUTO) 5.5 % (1.0-10.0); NEUTROPHILS % (AUTO) 67.1 % (45.0-75.0); PLATELET COUNT 378 K/UL (150-450); RED BLOOD COUNT 3.84 M/UL (4.20-5.40); RED CELL DISTRIBUTION WIDTH 11.2 % (11.6-14.8); WHITE BLOOD COUNT 9.5 K/UL (4.8-10.8)
[2018-08-24] MEDS ORDERED: Morphine Sulfate 4mg/ml Inj (IV/IM USE ONLY) IVP ONE (12:45)
[2018-08-24] MEDS ORDERED: Verapamil SR 240mg tab ORAL ONE (13:45)
[2018-08-24 14:00] VITALS: BP 158/87
[2018-08-24 15:06] VITALS: BP 117/72
[2018-08-24] MEDS ORDERED: Dyna-Hex 2% Top Sol 2oz TOPIC SCH (20:00)
== END 2018-08-24 15:10 | disposition short-term general hospital (02) ==
LOC: EMR 09:53
DX: R11.2 Nausea with vomiting, unspecified (principal); I10 Essential (primary) hypertension; E11.9 Type 2 diabetes mellitus without complications
CPT/HCPCS: 36415; 36569; 76937; 80053; 80307; 81003; 82962; 83690; 84702; 85025; 99285; J1644; J2001; J2270; J2765; S0028

== ENCOUNTER 2018-09-01 10:14 | Inpatient (IN) | payer BC ==
[~2018-09-01] VITALS: Ht 167.6 cm; Wt 99.8 kg
[2018-09-01 10:25] VITALS: BP 160/77
[2018-09-01] MEDS ORDERED: Pantoprazole Inj IV ONE (11:00)
[2018-09-01 11:39] LABS: APPEARANCE,URINE CLEAR; BILIRUBIN, URINE NEGATIVE (NEGATIVE); COLOR,URINE PALE YELLOW; GLUCOSE, URINE (UA) 4+ (NEGATIVE); KETONES,URINE NEGATIVE (NEGATIVE); LEUKOCYTE ESTERASE ,URINE NEGATIVE (NEGATIVE); NITRITE,URINE NEGATIVE (NEGATIVE); PH,URINE 7 (4.5-8.0); PROTEIN,URINE 3+ (NEGATIVE); UROBILINOGEN,URINE NORMAL MG/DL (0.0-1.0)
[2018-09-01] MEDS ORDERED: Morphine Sulfate 4mg/ml Inj (IV/IM USE ONLY) IVP ONE ×2 (11:45→12:30)
[2018-09-01 11:49] LABS: ANION GAP 9 mmol/L (5-15); BLOOD UREA NITROGEN 14 mg/dL (7-18); CALCIUM 8.9 MG/DL (8.5-10.1); CARBON DIOXIDE 25 MMOL/L (21-32); CHLORIDE 101 MMOL/L (98-107); CREATININE 1.1 MG/DL (0.55-1.30); POTASSIUM 4.1 MMOL/L (3.5-5.1); SODIUM 135 MMOL/L (136-145)
[2018-09-01 11:52] LABS: ALANINE AMINOTRANSFERASE 50 U/L (12-78); ALBUMIN 3.3 G/DL (3.4-5.0); ALBUMIN/GLOBULIN RATIO 0.7 (1.0-2.7); ALKALINE PHOSPHATASE 118 U/L (46-116); ASPARTATE AMINO TRANSFERASE 16 U/L (15-37); BILIRUBIN,TOTAL 0.2 MG/DL (0.2-1.0)
[2018-09-01 11:57] LABS: BASOPHILS % (AUTO) 0.8 % (0.0-2.0); EOSINOPHILS % (AUTO) 7.7 % (0.0-3.0); HEMATOCRIT 35.3 % (37.0-47.0); HEMOGLOBIN 11.6 G/DL (12.0-16.0); LYMPHOCYTES % (AUTO) 20.2 % (20.0-45.0); MEAN CORPUSCULAR VOLUME 90 FL (80-99); MONOCYTES % (AUTO) 3.8 % (1.0-10.0); NEUTROPHILS % (AUTO) 67.4 % (45.0-75.0); PLATELET COUNT 432 K/UL (150-450); RED BLOOD COUNT 3.91 M/UL (4.20-5.40); RED CELL DISTRIBUTION WIDTH 11.7 % (11.6-14.8); WHITE BLOOD COUNT 10.1 K/UL (4.8-10.8)
[2018-09-01 12:25] VITALS: BP 160/71
[2018-09-01] MEDS ORDERED: DiphenhydrAMINE 50mg/ml Inj IVP ONE (12:30)
[2018-09-01] MEDS ORDERED: HYDROmorphone 1 MG in NS 55 ML IV ONE (14:00)
--- NOTE | 2018-09-01 14:01 | Emergency Room Report ---
History of Present Illness General Chief Complaint: Nausea Source: Patient Present Illness HPI 38-year-old female presents ED for evaluation. Plating of abdominal pain with nausea and vomiting. Started this morning. States that she has a history of cyclical vomiting. Was admitted recently for this. States that her pain returned today. Pain is sharp, epigastric, nonradiating. Multiple episodes of nausea and vomiting. Denies chest pain or shortness of breath. Denies fevers or chills. No other aggravating relieving factors. Denies any other associated symptoms Allergies: Coded Allergies: NITROFURANTOIN (Verified Allergy, Unknown, 12/09/16) Patient History Past Medical History: DM Past Surgical History: none Pertinent Family History: none Social History: Denies: smoking, alcohol use, drug use Now: No Immunizations: UTD Reviewed Nursing Documentation: PMH: Agreed; PSxH: Agreed Nursing Documentation-PMH Past Medical History: No History, Except For Hx Hypertension: Yes Hx Diabetes: Yes - DM2 Review of Systems All Other Systems: negative except mentioned in HPI Physical Exam Vital Signs Date Time Temp Pulse Resp B/P (MAP) Pulse Ox O2 Delivery O2 Flow Rate FiO2 09/01/18 10:21 97.5 104 20 197/89 97 Room Air Sp02 EP Interpretation: reviewed, normal General Appearance: no apparent distress, alert, GCS 15, non-toxic, mild distress, obese Head: normocephalic, atraumatic Eyes: bilateral eye normal inspection, bilateral eye PERRL ENT: hearing grossly normal, normal pharynx, no angioedema, normal voice Neck: full range of motion, supple/symm/no masses Respiratory: chest non-tender, lungs clear, normal breath sounds, speaking full sentences Cardiovascular #1: regular rate, rhythm, no edema Cardiovascular #2: 2+ carotid (R), 2+ carotid (L), 2+ radial (R), 2+ radial (L) , 2+ dorsalis pedis (R), 2+ dorsalis pedis (L) Gastrointestinal: normal bowel sounds, soft, non-distended, no guarding, no rebound, tenderness - epigastric Rectal: deferred Genitourinary: normal inspection, no CVA tenderness Musculoskeletal: back normal, gait/station normal, normal range of motion, non- tender Neurologic: alert, oriented x3, responsive, motor strength/tone normal, sensory intact, speech normal Psychiatric: judgement/insight normal, memory normal, mood/affect normal, no suicidal/homicidal ideation Reflexes: 3+ bicep (R), 3+ bicep (L), 3+ tricep (R), 3+ tricep (L), 3+ knee (R) , 3+ knee (L) Skin: normal color, no rash, warm/dry, well hydrated Lymphatic: no adenopathy Medical Decision Making Diagnostic Impression: Primary Impression: Intractable abdominal pain Additional Impression: Intractable nausea and vomiting Qualified Codes: G43.A1 - Cyclical vomiting, intractable ER Course Hospital Course 38-year-old F presents to ED with epigastric pain with N/V. differential diagnosis: gastritis, SBO, cholecystits Clinical course Patient placed on stretcher. On site monitor. After initial history and physical I ordered labs, IV fluids, zofran, pepcid, meds Patient has difficult IV access. Has had PICC line placed previously. I placed a peripheral EJ line Labs - no leukocytosis, no electrolyte abnormalities, LFTs normal, UA unremarkable patient continues to have vomiting. Continues to have pain. Patient given 2 doses of morphine without improvement. Not tolerating by mouth intake. I believe patient should be admitted at this time. Patient will be admitted to Dr. Irby I feel this is a highly complex case requiring extensive working including EKG/ Rhythm strip, Xray/CT/US, Blood/urine lab work, repeat exams while in ED, and administration of strong opiates/narcotics for pain control, admission to hospital or close patient follow up. Diagnosis - intractable abd pain, intractable nausea and vomiting Admitted to floor in serious condition Labs Test 09/01/18 11:00 White Blood Count 10.1 K/UL (4.8-10.8) Red Blood Count 3.91 M/UL (4.20-5.40) Hemoglobin 11.6 G/DL (12.0-16.0) Hematocrit 35.3 % (37.0-47.0) Mean Corpuscular Volume 90 FL (80-99) Mean Corpuscular Hemoglobin 29.8 PG (27.0-31.0) Mean Corpuscular Hemoglobin Concent 32.9 G/DL (32.0-36.0) Red Cell Distribution Width 11.7 % (11.6-14.8) Platelet Count 432 K/UL (150-450) Mean Platelet Volume 5.3 FL (6.5-10.1) Neutrophils (%) (Auto) 67.4 % (45.0-75.0) Lymphocytes (%) (Auto) 20.2 % (20.0-45.0) Monocytes (%) (Auto) 3.8 % (1.0-10.0) Eosinophils (%) (Auto) 7.7 % (0.0-3.0) Basophils (%) (Auto) 0.8 % (0.0-2.0) Urine Color Pale yellow Urine Appearance Clear Urine pH 7 (4.5-8.0) Urine Specific [place] 1.010 (1.005-1.035) Urine Protein 3+ (NEGATIVE) Urine Glucose (UA) 4+ (NEGATIVE) Urine Ketones Negative (NEGATIVE) Urine Blood 1+ (NEGATIVE) Urine Nitrite Negative (NEGATIVE) Urine Bilirubin Negative (NEGATIVE) Urine Urobilinogen Normal MG/DL (0.0-1.0) Urine Leukocyte Esterase Negative (NEGATIVE) Urine RBC 0-2 /HPF (0 - 2) Urine WBC 0 /HPF (0 - 2) Urine Squamous Epithelial Cells Few /LPF (NONE/OCC) Urine Bacteria None /HPF (NONE) Urine HCG, Qualitative Negative (NEGATIVE) Sodium Level 135 MMOL/L (136-145) Potassium Level 4.1 MMOL/L (3.5-5.1) Chloride Level 101 MMOL/L (98-107) Carbon Dioxide Level 25 MMOL/L (21-32) Anion Gap 9 mmol/L (5-15) Blood Urea Nitrogen 14 mg/dL (7-18) Creatinine 1.1 MG/DL (0.55-1.30) Estimat Glomerular Filtration Rate > 60 mL/min (>60) Glucose Level 294 MG/DL (74-106) Calcium Level 8.9 MG/DL (8.5-10.1) Total Bilirubin 0.2 MG/DL (0.2-1.0) Aspartate Amino Transf (AST/SGOT) 16 U/L (15-37) Alanine Aminotransferase (ALT/SGPT) 50 U/L (12-78) Alkaline Phosphatase 118 U/L (46-116) Total Protein 8.3 G/DL (6.4-8.2) Albumin 3.3 G/DL (3.4-5.0) Globulin 5.0 g/dL Albumin/Globulin Ratio 0.7 (1.0-2.7) Lipase 200 U/L (73-393) Last Vital Signs Date Time Temp Pulse Resp B/P (MAP) Pulse Ox O2 Delivery O2 Flow Rate FiO2 09/01/18 12:09 97.5 09/01/18 10:25 92 15 160/77 100 Room Air Status: unchanged Disposition: ADMITTED INPATIENT Condition: Serious Referrals: [facility] ILENE VILCHIS (PCP) Adolfo Early MD Sep 01, 2018 14:00
[2018-09-01 14:25] VITALS: BP 154/77
--- NOTE | 2018-09-01 16:53 | History and Physical ---
History of Present Illness General Date patient seen: Sep 01, 2018 Time patient seen: 16:41 Reason for Hospitalization: Nausea Present Illness HPI 38-year-old female with no sig pmh presents with complaints of abdominal pain (7 /10 in severity) with nausea and vomiting that started this morning. Patient was previously admitted here with similar sx, states that she has a history of cyclical vomiting. Denies blood vomiting. Denies cp, sob, chest pain. Denies fevers/chills, denies diarrhea/constipation social hx reviewed, denies smoking, alcohol or drug use past fam hx reviewed, denies any sig past fam hx code status reviewed, full Allergies: Coded Allergies: NITROFURANTOIN (Verified Allergy, Unknown, 12/09/16) Medication History Scheduled Amitriptyline Hcl (Amitriptyline Hcl), 100 MG ORAL BEDTIME, (Reported) Amoxicillin/Potassium Clav 875-125* (Augmentin 875-125 Tablet*), 7 TAB ORAL TWICE A DAY Cyclobenzaprine Hcl (Cyclobenzaprine Hcl), 5 MG ORAL THREE TIMES A DAY, ( Reported) Erenumab-Aooe (Aimovig Autoinjector), 140 MG SQ EVERY MONTH, (Reported) Insulin Lispro (Humalog Kwikpen), 10 UNIT SQ TID, (Reported) Verapamil Hcl* (Calan Sr*), 240 MG ORAL DAILY, (Reported) Scheduled PRN Metoclopramide Hcl* (Metoclopramide Hcl*), 10 MG ORAL EVERY 6 HOURS PRN for Nausea & Vomiting, (Reported) Ondansetron (Zofran), 4 MG ORAL Q6H PRN Sumatriptan Succinate (Sumatriptan Succinate), 100 MG PO DAILY PRN for MIGRAINES , (Reported) Patient History History Provided By: Patient, Medical Record Healthcare decision maker Resuscitation status Advanced Directive on File Review of Systems ROS Narrative 14 point ros reviewed and negative except per the above HPI Physical Exam General Appearance: alert, lethargic, mild distress Lines, tubes and drains: peripheral HEENT: normocephalic, atraumatic, anicteric, mucous membranes moist Neck: non-tender, normal alignment, supple, normal inspection Respiratory/Chest: chest wall non-tender, lungs clear, normal breath sounds, no respiratory distress, no accessory muscle use Cardiovascular/Chest: normal peripheral pulses, normal rate, regular rhythm Abdomen: normal bowel sounds, non tender, soft, no organomegaly, no mass Extremities: normal range of motion, non-tender, normal inspection, no calf tenderness Skin Exam: normal pigmentation, warm/dry Neurologic: errand runner II-XII grossly normal, no motor/sensory deficits, alert, oriented x 3, responsive, normal mood/affect Last 24 Hour Vital Signs Date Time Temp Pulse Resp B/P (MAP) Pulse Ox O2 Delivery O2 Flow Rate FiO2 09/01/18 16:05 97.5 85 14 159/95 100 Room Air 09/01/18 14:25 97.5 86 16 154/77 100 Room Air 09/01/18 12:25 97.5 93 16 160/71 100 Room Air 09/01/18 12:09 97.5 09/01/18 12:09 97.5 09/01/18 10:25 97.5 92 15 160/77 100 Room Air 09/01/18 10:21 97.5 104 20 197/89 97 Room Air Laboratory Tests Test 09/01/18 11:00 White Blood Count 10.1 K/UL (4.8-10.8) Red Blood Count 3.91 M/UL (4.20-5.40) L Hemoglobin 11.6 G/DL (12.0-16.0) L Hematocrit 35.3 % (37.0-47.0) L Mean Corpuscular Volume 90 FL (80-99) Mean Corpuscular Hemoglobin 29.8 PG (27.0-31.0) Mean Corpuscular Hemoglobin Concent 32.9 G/DL (32.0-36.0) Red Cell Distribution Width 11.7 % (11.6-14.8) Platelet Count 432 K/UL (150-450) Mean Platelet Volume 5.3 FL (6.5-10.1) L Neutrophils (%) (Auto) 67.4 % (45.0-75.0) Lymphocytes (%) (Auto) 20.2 % (20.0-45.0) Monocytes (%) (Auto) 3.8 % (1.0-10.0) Eosinophils (%) (Auto) 7.7 % (0.0-3.0) H Basophils (%) (Auto) 0.8 % (0.0-2.0) Urine Color Pale yellow Urine Appearance Clear Urine pH 7 (4.5-8.0) Urine Specific [place] 1.010 (1.005-1.035) Urine Protein 3+ (NEGATIVE) H Urine Glucose (UA) 4+ (NEGATIVE) H Urine Ketones Negative (NEGATIVE) Urine Blood 1+ (NEGATIVE) H Urine Nitrite Negative (NEGATIVE) Urine Bilirubin Negative (NEGATIVE) Urine Urobilinogen Normal MG/DL (0.0-1.0) Urine Leukocyte Esterase Negative (NEGATIVE) Urine RBC 0-2 /HPF (0 - 2) Urine WBC 0 /HPF (0 - 2) Urine Squamous Epithelial Cells Few /LPF (NONE/OCC) Urine Bacteria None /HPF (NONE) Urine HCG, Qualitative Negative (NEGATIVE) Sodium Level 135 MMOL/L (136-145) L Potassium Level 4.1 MMOL/L (3.5-5.1) Chloride Level 101 MMOL/L (98-107) Carbon Dioxide Level 25 MMOL/L (21-32) Anion Gap 9 mmol/L (5-15) Blood Urea Nitrogen 14 mg/dL (7-18) Creatinine 1.1 MG/DL (0.55-1.30) Estimat Glomerular Filtration Rate > 60 mL/min (>60) Glucose Level 294 MG/DL (74-106) H Calcium Level 8.9 MG/DL (8.5-10.1) Total Bilirubin 0.2 MG/DL (0.2-1.0) Aspartate Amino Transf (AST/SGOT) 16 U/L (15-37) Alanine Aminotransferase (ALT/SGPT) 50 U/L (12-78) Alkaline Phosphatase 118 U/L (46-116) H Total Protein 8.3 G/DL (6.4-8.2) H Albumin 3.3 G/DL (3.4-5.0) L Globulin 5.0 g/dL Albumin/Globulin Ratio 0.7 (1.0-2.7) L Lipase 200 U/L (73-393) Urine Opiates Screen Negative (NEGATIVE) Urine Barbiturates Screen Negative (NEGATIVE) Phencyclidine (PCP) Screen Negative (NEGATIVE) Urine Amphetamines Screen Negative (NEGATIVE) Urine Benzodiazepines Screen Negative (NEGATIVE) Urine Cocaine Screen Negative (NEGATIVE) Urine Marijuana (THC) Screen Negative (NEGATIVE) Height (Feet): 5 Height (Inches): 6.00 Weight (Pounds): 230 Assessment/Plan Status: stable Assessment/Plan #Intractable Nausea/Vomiting #Cyclical Vomiting Syndrome #Intractable Abdominal Pain - IV zofran 4mg q6hr prn - IV reglan 10mg q6hrs - IVF NS 125 cc/hr - Dilaudid 1mg q6hrs prn pain - UDS pending #Hyperglycemia - gluc 290s on admit - check hgba1c - iss - accuchecks diet: clear liquid diet DVT Prophylaxis: SCD Code Status: Full Hospital Classification Declaration: Based on this initial evaluation, and depending on the patient's clinical course, I anticipate that this patient will require hospitalization for 2-3 days for intractable n/v and close respiratory/ hemodynamic monitoring. Disposition: Once the patient is stable to leave the hospital, I anticipate the patient will likely be discharged to the following environment: home with HH vs SNF I spent 74 minutes on this patient's case, and 40 minutes were dedicated to counseling and/or care coordination. Discussed with patient/family, nursing staff, SW/CM, [] regarding clinical status, treatment course, and disposition planning. Time of note may not reflect time of encounter. --- Date of Discussion: 09/01/18 A [id number] discussion with the patient regarding the patient's advanced care planning took place during this hospitalization on the above date. The discussion included the explanation and discussion of advance directives and associated forms/documents, as well as the patient's current code status. We also discussed at length the patient's medical conditions (both acute and chronic), general prognosis, treatment options, and goals of care. The following summarizes the discussion: Advance Care Planning/Goals of Care: - Will attempt to fill out an AD and/or POLST with the patient prior to discharge, if not already completed - Continue current evaluation and management of any acute and chronic medical issues - Will continue to support the patient/family - Will continue to discuss both short- and long-term goals of care DPOA-HC/Surrogate Decision Maker: None currently appointed Code Status: Full Code AD Forms/Documents Completed: Deferred A total of 31 minutes was spent on this discussion, including counseling, answering questions, and completing, if any, pertinent advanced care planning forms/documents. Soraya Ivy MD Sep 01, 2018 16:53
[2018-09-01] MEDS ORDERED: HYDROmorphone 1mg/ml Carpuject SUBQ PRN (17:00)
[2018-09-01] MEDS: Metoclopramide 10mg/2ml Inj IVP SCH ×2 (17:26→23:00)
[2018-09-01 20:00] VITALS: BP 152/81
[2018-09-01] MEDS: HYDROmorphone 1mg/ml Carpuject IVP PRN (22:15)
[2018-09-01] MEDS: NovoLOG Insulin Flexpen SUBQ SCH (22:21)
[2018-09-02] VITALS: BP 152/90
[2018-09-02] MEDS: HYDROmorphone 1mg/ml Carpuject IVP PRN ×3 (03:48→12:45)
[2018-09-02 04:00] VITALS: BP 139/86
[2018-09-02] MEDS: Metoclopramide 10mg/2ml Inj IVP SCH ×2 (05:00→11:39)
[2018-09-02] MEDS: NovoLOG Insulin Flexpen SUBQ SCH ×3 (06:27→16:30)
[2018-09-02 08:10] VITALS: BP 172/97
[2018-09-02] MEDS ORDERED: Pantoprazole Inj IVP SCH (09:00)
[2018-09-02 12:00] VITALS: BP 150/92
[2018-09-02] MEDS ORDERED: Verapamil SR 240mg tab ORAL SCH (12:00)
[2018-09-02 16:00] VITALS: BP 158/86
[2018-09-02] MEDS ORDERED: VERAPAMIL ER240 MG ORAL (16:04)
[2018-09-02] MEDS ORDERED: NORCO 5-325 TA1 EACH ORAL (16:05)
--- NOTE | 2018-09-02 16:06 | Discharge Summary ---
Discharge Summary Hospital Course Date of Admission Sep 01, 2018 at 15:12 Date of Discharge 09/02/18 Admitting Diagnosis intractable abd pain/vomiting HPI Gabbie Roth is a 38 year old female who was admitted on Sep 01, 2018 at 15:12 for Intractable Abdominal Pain Vomiting Hospital Course Patient presented to the ED with intractable nausea and vomiting attributed to her history of cyclic vomiting syndrome. She was treated supportively with IV antibiotics, anti-emetics and pain meds with improvement in her symptoms. BP was also elevated and she was treated with verapamil which she had been on in the past. She is tolerating regular diet and will be discharged home in good condition. Script for [place] and verapamil given. 35 minutes was spent in discharging the patient which included reviewing hospital course and discharge instructions. I Discharge Discharge Disposition Patient was discharged to home Felipe Morgan MD Sep 02, 2018 16:06
[2018-09-03] MEDS ORDERED: Verapamil SR 240mg tab ORAL SCH (09:00)
== END 2018-09-02 16:30 | disposition home or self-care (01) | DRG 103 ==
LOC: EMR 10:52 → EDBEDREQ 14:03 → 4E 15:12 → EDBEDREQ 15:29 → 4E 16:37
DX: G43.A0 Cyclical vomiting, in migraine, not intractable (principal); Z88.8 Allergy status to other drugs, medicaments and biological substances; E11.65 Type 2 diabetes mellitus with hyperglycemia
CPT/HCPCS: 36415; 80053; 80307; 81003; 81025; 82962; 83036; 83690; 85025; 87081; 96361; 96374; 96375; 96376; 99285; J1815; J2405; J2765

== ENCOUNTER 2018-10-23 14:23 | Observation (INO) | payer BC ==
[~2018-10-23] VITALS: Ht 165.1 cm; Wt 98.9 kg
[~2018-10-23 14:23] MED LIST changes: +NORCO 5-325 TA1 EACH ORAL
[2018-10-23 14:40] VITALS: BP 156/86
--- NOTE | 2018-10-23 14:40 | NUR ---
ED Nurse Note: Pt walked in c/o abd pain x2days, +n/v, denies diarrhea, pt aA&ox4, gcs=15, skin warm and dry, resp even and unlabored on RA, afebrile, -n/v/d at this time, abd soft nondistended, +tenderness, active BS, will cont monitor.
--- NOTE | 2018-10-23 14:50 | Emergency Room Report ---
History of Present Illness General Chief Complaint: Abdominal Pain Source: Patient Present Illness HPI Patient presents with a 2 days of vomiting, increased back pain and dysuria. She denies fevers or chills. She's unable keep down fluids at this time. Because she's not keeping anything down, she stopped taking insulin. She usually takes 15 units of Humalog before meals and 30 units of Lantus in the morning. The patient has a fractured back and she believes that's probably what is causing increased back pain. This was diagnosed several months ago with a CT scan at another facility. The patient's been admitted for intractable abdominal pain and vomiting in the past. No fevers, chills, chest pain, palpitations, diarrhea, dysuria, shortness of breath, depression, visual changes, headache. History of cyclic vomiting. She denies prior renal dysfunction. Allergies: Coded Allergies: NITROFURANTOIN (Verified Allergy, Unknown, 12/09/16) Patient History Past Medical History: see triage record Social History: Denies: smoking Social History Narrative from home Last Menstrual Period: 10/06/18 Now: No Reviewed Nursing Documentation: PMH: Agreed; PSxH: Agreed Nursing Documentation-PMH Past Medical History: No History, Except For Hx Hypertension: Yes Hx Diabetes: Yes - DM2 Hx Neurological Problems: Yes - migraines Hx Cerebrovascular Accident: No Hx Transient Ischemic Attacks: No Hx Dementia: No Hx Alzheimer's Disease: No Hx Parkinson's Disease: No Hx Meningitis: No Hx Encephalitis: No Hx Seizures: Yes Hx Epilepsy: No Hx Multiple Sclerosis: No Hx Cerebral Palsy: No Hx Amyotrophic Lat Sclerosis: No Hx Guillian-[place] Syndrome: No Hx Paralysis: No Hx Peripheral Neuropathy: No Hx Spinal Cord Injury: No Hx Head Trauma: No Hx Traumatic Brain Injury: No Hx Memory Loss: No Hx Concentration Difficulty: No Hx Speech Problem: No Hx Tremors: No Hx Vertigo: No Hx Dizziness: No Hx Syncope: No Hx Headaches: Yes Hx Aphasia: No Hx Numbness: No Hx Fatigue: No Hx Neurologic Surgery: No Hx Brain Shunt: No Review of Systems All Other Systems: negative except mentioned in HPI Physical Exam Vital Signs Date Time Temp Pulse Resp B/P (MAP) Pulse Ox O2 Delivery O2 Flow Rate FiO2 10/23/18 14:34 98.8 116 20 164/44 95 Room Air Sp02 EP Interpretation: reviewed, normal General Appearance: well appearing, no apparent distress, GCS 15 Head: normocephalic Eyes: bilateral eye normal inspection, bilateral eye PERRL ENT: moist mucus membranes Neck: supple Respiratory: lungs clear, normal breath sounds Cardiovascular #1: regular rate, rhythm Cardiovascular #2: 2+ radial (R) Gastrointestinal: normal inspection, normal bowel sounds, no mass, non- distended, no guarding, no rebound, tenderness - Some diffuse Genitourinary: no CVA tenderness Musculoskeletal: gait/station normal, normal range of motion, tender - Back Neurologic: alert, oriented x3, grossly normal Psychiatric: depressed affect Skin: normal inspection, warm/dry Medical Decision Making Diagnostic Impression: Primary Impression: Acute renal failure Qualified Codes: N17.9 - Acute kidney failure, unspecified Additional Impressions: Intractable abdominal pain Hyperglycemia Hypertension Qualified Codes: I10 - Essential (primary) hypertension ER Course Patient presents with vomiting and dysuria with increased back pain. I urinalysis is indicated. Also Zofran and Toradol will be started. She is tachycardic and may need to have IV hydration. Labs remarkable for normal white count. Hyperglycemia. Renal failure. Patient treated with multiple doses of Dilaudid. Improvement of pain. Renal failure most likely due to lack of oral intake. However this needs to be followed. Insulin given. Accu-Chek improved. Patient admitted to medical floor Dr. Henao. Dr. Conner environmental program manager and contacted. Laboratory Tests Test 10/23/18 14:55 10/23/18 16:20 Urine Color Yellow Urine Appearance Clear Urine pH 6 (4.5-8.0) Urine Specific [place] 1.020 (1.005-1.035) Urine Protein 4+ (NEGATIVE) H Urine Glucose (UA) 4+ (NEGATIVE) H Urine Ketones 3+ (NEGATIVE) H Urine Blood 2+ (NEGATIVE) H Urine Nitrite Negative (NEGATIVE) Urine Bilirubin Negative (NEGATIVE) Urine Urobilinogen Normal MG/DL (0.0-1.0) Urine Leukocyte Esterase Negative (NEGATIVE) Urine RBC 2-4 /HPF (0 - 2) H Urine WBC 0-2 /HPF (0 - 2) Urine Squamous Epithelial Cells Few /LPF (NONE/OCC) Urine Bacteria Few /HPF (NONE) Urine HCG, Qualitative Negative (NEGATIVE) White Blood Count 9.5 K/UL (4.8-10.8) Red Blood Count 5.17 M/UL (4.20-5.40) Hemoglobin 14.9 G/DL (12.0-16.0) Hematocrit 45.8 % (37.0-47.0) Mean Corpuscular Volume 89 FL (80-99) Mean Corpuscular Hemoglobin 28.9 PG (27.0-31.0) Mean Corpuscular Hemoglobin Concent 32.6 G/DL (32.0-36.0) Red Cell Distribution Width 11.7 % (11.6-14.8) Platelet Count 386 K/UL (150-450) Mean Platelet Volume 5.5 FL (6.5-10.1) L Neutrophils (%) (Auto) 78.1 % (45.0-75.0) H Lymphocytes (%) (Auto) 13.8 % (20.0-45.0) L Monocytes (%) (Auto) 5.1 % (1.0-10.0) Eosinophils (%) (Auto) 1.7 % (0.0-3.0) Basophils (%) (Auto) 1.3 % (0.0-2.0) Sodium Level 128 MMOL/L (136-145) L Potassium Level 4.6 MMOL/L (3.5-5.1) Chloride Level 93 MMOL/L (98-107) L Carbon Dioxide Level 23 MMOL/L (21-32) Anion Gap 12 mmol/L (5-15) Blood Urea Nitrogen 29 mg/dL (7-18) H Creatinine 2.5 MG/DL (0.55-1.30) H Estimate Glomerular Filtration Rate 26.3 mL/min (>60) Glucose Level 370 MG/DL (74-106) H Calcium Level 9.2 MG/DL (8.5-10.1) Total Bilirubin 0.4 MG/DL (0.2-1.0) Aspartate Amino Transferase (AST) 17 U/L (15-37) Alanine Aminotransferase (ALT) 36 U/L (12-78) Alkaline Phosphatase 113 U/L (46-116) Total Protein 9.6 G/DL (6.4-8.2) H Albumin 3.7 G/DL (3.4-5.0) Globulin 5.9 g/dL Albumin/Globulin Ratio 0.6 (1.0-2.7) L Lipase 212 U/L (73-393) Chest X-Ray Diagnostic Results Chest X-Ray Diagnostic Results : Chest X-Ray Ordered: Yes # of Views/Limited/Complete: 1 View Indication: Other EP Interpretation: Yes Interpretation: no consolidation, no effusion, no pneumothorax Impression: No acute disease Electronically Signed by: Electronically signed by Dilan Fay MD Other X-Ray Diagnostic Results Other X-Ray Diagnostic Results : X-Ray ordered: abd # of Views/Limited Vs Complete: 2 View Indication: Pain Interpretation: nonspecific bowel gas, no sbo, other - no masses Impression: Other Electronically Signed by: Electronically signed by Dilan Fay MD Last Vital Signs Date Time Temp Pulse Resp B/P (MAP) Pulse Ox O2 Delivery O2 Flow Rate FiO2 10/24/18 01:36 168/111 10/24/18 00:00 98.4 102 18 98 10/23/18 23:38 Room Air Status: improved Disposition: ADMITTED INPATIENT Condition: Serious Dilan Fay MD Oct 23, 2018 14:50
[2018-10-23] MEDS ORDERED: Hydromorphone 0.5mg/0.5ml inj IVP ONE ×3 (15:00→20:30)
[2018-10-23] MEDS ORDERED: Ketorolac 30mg Inj IM ONE (15:00)
[2018-10-23] MEDS ORDERED: DiphenhydrAMINE 50mg/ml Inj IVP ONE ×2 (15:00→20:30)
--- NOTE | 2018-10-23 15:30 | NUR ---
ED Nurse Note: called lab for blood draw.
--- NOTE | 2018-10-23 16:30 | NUR ---
ED Nurse Note: pt void, urine specimen sent.
[2018-10-23 16:40] LABS: ANION GAP 12 mmol/L (5-15); BLOOD UREA NITROGEN 29 mg/dL (7-18); CALCIUM 9.2 MG/DL (8.5-10.1); CARBON DIOXIDE 23 MMOL/L (21-32); CHLORIDE 93 MMOL/L (98-107); CREATININE 2.5 MG/DL (0.55-1.30); POTASSIUM 4.6 MMOL/L (3.5-5.1); SODIUM 128 MMOL/L (136-145)
[2018-10-23 16:45] LABS: ALANINE AMINOTRANSFERASE 36 U/L (12-78); ALBUMIN 3.7 G/DL (3.4-5.0); ALBUMIN/GLOBULIN RATIO 0.6 (1.0-2.7); ALKALINE PHOSPHATASE 113 U/L (46-116); ASPARTATE AMINO TRANSFERASE 17 U/L (15-37); BILIRUBIN,TOTAL 0.4 MG/DL (0.2-1.0)
[2018-10-23 16:47] LABS: BASOPHILS % (AUTO) 1.3 % (0.0-2.0); EOSINOPHILS % (AUTO) 1.7 % (0.0-3.0); HEMATOCRIT 45.8 % (37.0-47.0); HEMOGLOBIN 14.9 G/DL (12.0-16.0); LYMPHOCYTES % (AUTO) 13.8 % (20.0-45.0); MEAN CORPUSCULAR VOLUME 89 FL (80-99); MONOCYTES % (AUTO) 5.1 % (1.0-10.0); NEUTROPHILS % (AUTO) 78.1 % (45.0-75.0); PLATELET COUNT 386 K/UL (150-450); RED BLOOD COUNT 5.17 M/UL (4.20-5.40); RED CELL DISTRIBUTION WIDTH 11.7 % (11.6-14.8); WHITE BLOOD COUNT 9.5 K/UL (4.8-10.8)
--- NOTE | 2018-10-23 17:02 | NUR ---
ED Nurse Note: pt reports pain,ERMD notified.
[2018-10-23 17:11] LABS: APPEARANCE,URINE CLEAR; BILIRUBIN, URINE NEGATIVE (NEGATIVE); GLUCOSE, URINE (UA) 4+ (NEGATIVE); KETONES,URINE 3+ (NEGATIVE); LEUKOCYTE ESTERASE ,URINE NEGATIVE (NEGATIVE); NITRITE,URINE NEGATIVE (NEGATIVE); PH,URINE 6 (4.5-8.0); PROTEIN,URINE 4+ (NEGATIVE); UROBILINOGEN,URINE NORMAL MG/DL (0.0-1.0)
[2018-10-23 17:13] LABS: COLOR,URINE YELLOW
[2018-10-23] MEDS ORDERED: cefTRIAXone 1 GM in NS 55 ML IVPB ONE (17:15)
[2018-10-23] MEDS ORDERED: Hydromorphone 0.5mg/0.5ml inj IVP PRN (23:15)
[2018-10-23] MEDS ORDERED: Milk of Magnesia 30ml Ud ORAL PRN (23:15)
[2018-10-23] MEDS ORDERED: HYDROmorphone 1mg/ml Carpuject IVP PRN (23:15)
[2018-10-23] MEDS ORDERED: Levemir Flexpen SUBQ SCH (23:30)
--- NOTE | 2018-10-23 23:40 | NUR ---
ED Nurse Note: report given to RN Hermelinda and endorsed care, pt vss, resp even and unlabored on RA, all belongings left w/ pt.
[2018-10-24] VITALS: BP 168/111
[2018-10-24] MEDS ORDERED: Hydromorphone 0.5mg/0.5ml inj IVP PRN ×2 (00:15→00:30)
[2018-10-24] MEDS ORDERED: HYDROmorphone 1mg/ml Carpuject IVP PRN ×2 (00:15→00:30)
--- NOTE | 2018-10-24 00:45 | NUR ---
NURSE NOTES: Received patient from ER via rtiffanie with dx of renal failure and hyperglycemia. Primary Dr Henao, applications specialist Dr Conner is covering. Report received from PHLEBOTOMY SUPPORT TECH Leena. On RA, no SOB, no acute distress. belongings checked, oriented pt to surroundings. Bed in lowest position, locked, alarms on. Call light in reach. Admission orders received from Dr Conner, carried out.
--- NOTE | 2018-10-24 01:10 | NUR ---
NURSE NOTES: Patient noted with blood sugar of 301 and high bp of 169/111. Notified Dr Conner, received additional med order of Novolog per siding scale, Varapamil, and PRN Hydralazine. Carried out.
[2018-10-24] MEDS ORDERED: HydrALAZINE 25mg tab ORAL PRN (01:15)
--- NOTE | 2018-10-24 02:30 | NUR ---
NURSE NOTES: Inserted new 22G IV on RFA, resumed NS 300cc/hr. Addendum: 10/24/18 at 0618 by Chris Nuñez RN Discard NS 300cc/hr. Current IVF rate is 100cc/hr.
[2018-10-24 04:00] VITALS: BP 120/93
[2018-10-24] MEDS ORDERED: Heparin 5000 units/ml inj SUBQ SCH ×2 (06:00→21:00)
[2018-10-24] MEDS: NovoLOG Insulin Flexpen SUBQ SCH ×3 (06:11→17:14)
[2018-10-24 07:14] LABS: ANION GAP 12 mmol/L (5-15); BLOOD UREA NITROGEN 28 mg/dL (7-18); CALCIUM 8.1 MG/DL (8.5-10.1); CARBON DIOXIDE 21 MMOL/L (21-32); CHLORIDE 95 MMOL/L (98-107); CREATININE 1.6 MG/DL (0.55-1.30); POTASSIUM 4.5 MMOL/L (3.5-5.1); SODIUM 128 MMOL/L (136-145)
--- NOTE | 2018-10-24 07:32 | NUR ---
HAND-OFF: Report given to Flora Durham RN.
--- NOTE | 2018-10-24 07:34 | NUR ---
NURSE NOTES: Received patient in bed, alert and oriented x4. Not in acute respiratory/cardiac distress. Ambulatory. Patient is in mild pain but will wait until next pain meds due. IV intact, no s/s of infiltration. Bed is in lowest position and locked. Call light within reach. Will continue plan of care.
[2018-10-24 08:00] VITALS: BP 125/80
--- NOTE | 2018-10-24 08:37 | Diagnostic Imaging Report ---
Indication: Chest pain Technique: One view of the chest Comparison: 12/09/2016 Findings: Lungs and pleural spaces are clear. Heart size is normal. No significant interim change. Inspiration is suboptimal. Impression: No acute process
--- NOTE | 2018-10-24 08:38 | Diagnostic Imaging Report ---
Indication: Abdominal pain Technique: Supine view of the abdomen Comparison: none Findings: Bowel gas pattern is unremarkable. No unusual masses or calcifications. The bones are unremarkable Impression: Negative
--- NOTE | 2018-10-24 08:43 | NUR ---
NURSE NOTES: Patient tolerated well to clear liquid diet without nausea or vomiting. PAtient requested to have regular diet. RN spoke to Dr. Vazquez application support lead for [facility] with new order to d/c clear liquid diet change to CCHOmedium , soft easy chew. Order read back and carried out.
[2018-10-24] MEDS ORDERED: Verapamil SR 240mg tab ORAL SCH (09:00)
[2018-10-24] MEDS ORDERED: Docusate 100mg cap ORAL SCH (09:00)
--- NOTE | 2018-10-24 09:20 | NUR ---
NURSE NOTES: Received a call from Claudia from [facility], She wanted to talk to the primary doctor for possible transfer to [facility]. Patient was seen by Dr. Arroyo and Dr. Vazquez stated that patient is stable to be transferred to another hospital. Given case management number to [email or web address].She will call complex case manager. Claudia's phone number is [phone], fax is [phone].
--- NOTE | 2018-10-24 10:15 | NUR ---
*-* NO INSURANCE INFORMATION IN THE BAR TO SEND CLINICALS *-*
--- NOTE | 2018-10-24 11:46 | NUR ---
*-* INSURANCE *-* CLINICALS HAVE BEEN FAXED TO: [facility] F:[phone] P:[phone]
[2018-10-24 12:00] VITALS: BP 122/77
--- NOTE | 2018-10-24 12:36 | NUR ---
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 98.7 HR 116 RR 20 B/P 164/44 NA 128 BUN 25 CR 2.5 GLU 370 UA= PROTEIN,GLUCOSE,KETONES,BLOOD,RBC CXR= NO ACUTE PROCESS ABD X-RAY= NO ACUTE PROCESS IS: ZOSYN IV IV BOLUS NS X 1 LITER TORADOL IV ROCEPHIN IV DILAUDID IV BENADRYL IV ADMITTED TO MED/SURG MED/SURG STATUS DCP RETURN HOME
--- NOTE | 2018-10-24 13:36 | History and Physical ---
History of Present Illness General Date patient seen: Oct 24, 2018 Time patient seen: 08:45 Reason for Hospitalization: Abdominal Pain Present Illness HPI Patient with history of cyclic vomiting syndrome who presented to the ED last night with 2 days of vomiting, increased back pain and dysuria. She denies fevers or chills. She stopped taking her insulin due to poor oral intake. In ED she was noted to have uncontrolled DM and GALILEA and referred for admission. Social History: Denies alcohol or tobacco Family History: No history of stroke or CAD Allergies: Coded Allergies: NITROFURANTOIN (Verified Allergy, Unknown, 12/09/16) Medication History Scheduled Amitriptyline Hcl (Amitriptyline Hcl), 100 MG ORAL BEDTIME, (Reported) Cyclobenzaprine Hcl (Cyclobenzaprine Hcl), 5 MG ORAL THREE TIMES A DAY, ( Reported) Erenumab-Aooe (Aimovig Autoinjector), 140 MG SQ EVERY MONTH, (Reported) Insulin Lispro (Humalog Kwikpen), 10 UNIT SQ TID, (Reported) Verapamil Hcl* (Calan Sr*), 240 MG ORAL DAILY, (Reported) Verapamil Hcl* (Calan Sr*), 240 MG ORAL DAILY, (Reported) Scheduled PRN Hydrocodone Bit/Acetaminophen 5-325* ([place] 5-325*), 1 TAB ORAL THREE TIMES A DAY PRN for For Pain, (Reported) Metoclopramide Hcl* (Metoclopramide Hcl*), 10 MG ORAL EVERY 6 HOURS PRN for Nausea & Vomiting, (Reported) Ondansetron (Zofran), 4 MG ORAL Q6H PRN Sumatriptan Succinate (Sumatriptan Succinate), 100 MG PO DAILY PRN for MIGRAINES , (Reported) Patient History Healthcare decision maker Resuscitation status Full Code Advanced Directive on File Review of Systems Constitutional: Denies: chills, fever Eye: Denies: eye pain ENT: Denies: ear pain Respiratory: Denies: cough Cardiovascular: Denies: chest pain Gastrointestinal: Denies: abdominal pain Musculoskeletal: Denies: back pain Skin: Denies: rash Physical Exam General Appearance: no apparent distress, alert HEENT: normocephalic, atraumatic Neck: non-tender, normal alignment Respiratory/Chest: chest wall non-tender, lungs clear, normal breath sounds Abdomen: normal bowel sounds, non tender, soft, no organomegaly Extremities: normal range of motion, non-tender, normal inspection Skin Exam: normal pigmentation, warm/dry Neurologic: ophthalmic medical technologist II-XII grossly normal, no motor/sensory deficits Last 24 Hour Vital Signs Date Time Temp Pulse Resp B/P (MAP) Pulse Ox O2 Delivery O2 Flow Rate FiO2 10/24/18 12:00 98.3 90 19 122/77 (92) 95 10/24/18 09:52 99 129/96 10/24/18 09:00 Room Air 10/24/18 08:00 97.2 95 18 125/80 (95) 95 10/24/18 04:00 97.3 101 18 120/93 (102) 95 10/24/18 02:09 Room Air 10/24/18 01:36 168/111 10/24/18 00:00 98.4 102 18 168/111 (130) 98 10/23/18 23:38 98.8 98 20 138/84 98 Room Air 10/23/18 21:12 98.8 10/23/18 16:06 98.8 10/23/18 16:06 98.8 10/23/18 14:40 100 16 Room Air 10/23/18 14:40 98.8 98 20 156/86 98 Room Air 10/23/18 14:34 98.8 116 20 164/44 95 Room Air Intake and Output 10/23/18 10/24/18 19:00 07:00 Intake Total 600 ml Balance 600 ml Intake IV Total 600 ml # Voids 1 Laboratory Tests Test 10/23/18 14:55 10/23/18 16:20 10/24/18 05:10 Urine Color Yellow Urine Appearance Clear Urine pH 6 (4.5-8.0) Urine Specific [place] 1.020 (1.005-1.035) Urine Protein 4+ (NEGATIVE) H Urine Glucose (UA) 4+ (NEGATIVE) H Urine Ketones 3+ (NEGATIVE) H Urine Blood 2+ (NEGATIVE) H Urine Nitrite Negative (NEGATIVE) Urine Bilirubin Negative (NEGATIVE) Urine Urobilinogen Normal MG/DL (0.0-1.0) Urine Leukocyte Esterase Negative (NEGATIVE) Urine RBC 2-4 /HPF (0 - 2) H Urine WBC 0-2 /HPF (0 - 2) Urine Squamous Epithelial Cells Few /LPF (NONE/OCC) Urine Bacteria Few /HPF (NONE) Urine HCG, Qualitative Negative (NEGATIVE) White Blood Count 9.5 K/UL (4.8-10.8) Red Blood Count 5.17 M/UL (4.20-5.40) Hemoglobin 14.9 G/DL (12.0-16.0) Hematocrit 45.8 % (37.0-47.0) Mean Corpuscular Volume 89 FL (80-99) Mean Corpuscular Hemoglobin 28.9 PG (27.0-31.0) Mean Corpuscular Hemoglobin Concent 32.6 G/DL (32.0-36.0) Red Cell Distribution Width 11.7 % (11.6-14.8) Platelet Count 386 K/UL (150-450) Mean Platelet Volume 5.5 FL (6.5-10.1) L Neutrophils (%) (Auto) 78.1 % (45.0-75.0) H Lymphocytes (%) (Auto) 13.8 % (20.0-45.0) L Monocytes (%) (Auto) 5.1 % (1.0-10.0) Eosinophils (%) (Auto) 1.7 % (0.0-3.0) Basophils (%) (Auto) 1.3 % (0.0-2.0) Sodium Level 128 MMOL/L (136-145) L 128 MMOL/L (136-145) L Potassium Level 4.6 MMOL/L (3.5-5.1) 4.5 MMOL/L (3.5-5.1) Chloride Level 93 MMOL/L (98-107) L 95 MMOL/L (98-107) L Carbon Dioxide Level 23 MMOL/L (21-32) 21 MMOL/L (21-32) Anion Gap 12 mmol/L (5-15) 12 mmol/L (5-15) Blood Urea Nitrogen 29 mg/dL (7-18) H 28 mg/dL (7-18) H Creatinine 2.5 MG/DL (0.55-1.30) H 1.6 MG/DL (0.55-1.30) H Estimat Glomerular Filtration Rate 26.3 mL/min (>60) 44.0 mL/min (>60) Glucose Level 370 MG/DL (74-106) H 297 MG/DL (74-106) H Calcium Level 9.2 MG/DL (8.5-10.1) 8.1 MG/DL (8.5-10.1) L Total Bilirubin 0.4 MG/DL (0.2-1.0) Aspartate Amino Transf (AST/SGOT) 17 U/L (15-37) Alanine Aminotransferase (ALT/SGPT) 36 U/L (12-78) Alkaline Phosphatase 113 U/L (46-116) Total Protein 9.6 G/DL (6.4-8.2) H Albumin 3.7 G/DL (3.4-5.0) Globulin 5.9 g/dL Albumin/Globulin Ratio 0.6 (1.0-2.7) L Lipase 212 U/L (73-393) Hemoglobin A1c 9.3 % (4.3-6.0) H Magnesium Level 1.8 MG/DL (1.8-2.4) Height (Feet): 5 Height (Inches): 5.00 Weight (Pounds): 218 Medications Current Medications Medications (Trade) Dose Ordered Sig/Shannan Route PRN Reason Start Time Stop Time Status Last Admin Dose Admin Acetaminophen (Tylenol) 650 mg Q4H PRN ORAL Mild Pain (Pain Scale 1-3) 10/23/18 23:15 11/22/18 23:14 Acetaminophen (Tylenol) 650 mg Q4H PRN ORAL fever 10/23/18 23:15 11/22/18 23:14 Bisacodyl (Dulcolax) 10 mg HSPRN PRN RECTAL Constipation 10/23/18 23:15 11/22/18 23:14 Dextrose (Dextrose 50%) 25 ml Q30M PRN IV Hypoglycemia 10/23/18 23:15 11/22/18 23:14 Dextrose (Dextrose 50%) 50 ml Q30M PRN IV Hypoglycemia 10/23/18 23:15 11/22/18 23:14 Diphenhydramine HCl (Benadryl) 25 mg Q6H PRN ORAL Itching/Pruritis 10/23/18 23:15 11/22/18 23:14 10/24/18 06:29 Docusate Sodium (Colace) 100 mg EVERY 12 HOURS ORAL 10/24/18 09:00 11/23/18 08:59 10/24/18 08:25 Heparin Sodium (Porcine) (Heparin 5000 units/ml) 5,000 units EVERY 8 HOURS SUBQ 10/24/18 06:00 11/23/18 05:59 10/24/18 06:11 Hydralazine HCl (Apresoline) 25 mg Q6H PRN ORAL SBP >160 10/24/18 01:15 11/23/18 01:14 10/24/18 01:36 Hydromorphone HCl (Dilaudid) 0.5 mg Q4H PRN IVP For Pain 10/24/18 00:30 10/31/18 00:29 Hydromorphone HCl (Dilaudid) 1 mg Q4H PRN IVP For Moderate Pain 10/24/18 00:30 10/31/18 00:29 Hydromorphone HCl (Dilaudid) 2 mg Q4H PRN IVP Severe Pain 10/24/18 00:30 10/31/18 00:29 10/24/18 12:34 Insulin Aspart (NovoLOG) BEFORE MEALS AND HS SUBQ 10/24/18 06:30 11/23/18 06:29 10/24/18 11:50 Insulin Detemir (Levemir) 15 units BEDTIME SUBQ 10/24/18 21:00 11/22/18 23:29 UNV Magnesium Hydroxide (Mom) 30 ml HSPRN PRN ORAL Constipation 10/23/18 23:15 11/22/18 23:14 Ondansetron HCl (Zofran) 4 mg Q6H PRN IVP Nausea & Vomiting 10/23/18 23:15 11/22/18 23:14 10/24/18 12:43 Sodium Chloride 1,000 ml @ 100 mls/hr Q10H IVLG 10/24/18 00:05 11/23/18 00:04 10/24/18 06:15 Temazepam (Restoril) 15 mg HSPRN PRN ORAL Insomnia 10/23/18 23:15 10/30/18 23:14 Verapamil HCl (Calan SR) 240 mg DAILY ORAL 10/24/18 09:00 11/23/18 08:59 10/24/18 09:52 Assessment/Plan Assessment/Plan #Intractable nausea, vomiting #history of cyclic vomiting -continue supportive care wit h with pain meds and anti-emetics #GALILEA -likely due to dehydration, poor oral intake -continue IV hydration and monitor renal function #Type 2 DM, uncontrolled -start Levemir 15 units at HS -lispro SS #Hyponatremia, likely related to volume depletion and hyperglycemia -continue IV NS -repeat BMP in AM VTE PPx heparin Full Code Felipe Morgan MD Oct 24, 2018 13:36
[2018-10-24 16:00] VITALS: BP 144/91
--- NOTE | 2018-10-24 16:45 | NUR ---
NURSE NOTES: Transfer report given to Maryuri @ [facility] [phone] ext. [phone]. Beena HARDEN said transportation will be here @18:00 pm. No transportation info. Per insurance per Beena.
[2018-10-24] MEDS ORDERED: BENADRYL25 MG ORAL (17:35)
[2018-10-24] MEDS ORDERED: DOCUSATE SODIU100 MG ORAL (17:36)
[2018-10-24] MEDS ORDERED: HEPARIN SO5000 UNIT2 SUBQ (17:36)
[2018-10-24] MEDS ORDERED: HYDRALAZINE HCL25 M1 ORAL (17:38)
[2018-10-24] MEDS ORDERED: NOVOLOG100 UNIT/4 SQ (17:45)
[2018-10-24] MEDS ORDERED: VERAPAMIL ER240 MG ORAL (17:46)
[2018-10-24] MEDS ORDERED: LEVEMIR100 UNIT/1 SUBQ (17:46)
[2018-10-24] MEDS ORDERED: ZOFRAN4 M3 ORAL (17:46)
[2018-10-24] MEDS ORDERED: RESTORIL15 MG ORAL (17:46)
[2018-10-24] MEDS ORDERED: HYDROMORPHO1 MG/1 M9 IVP (17:47)
[2018-10-24] MEDS ORDERED: HYDROMORPHO2 MG/1 M8 IVP (17:48)
[2018-10-24] MEDS ORDERED: ONDANSETRON4 MG/2 M2 IVP (17:49)
--- NOTE | 2018-10-24 18:55 | NUR ---
NURSE NOTES: Spoke to house piping inspector to follow up with patient's transportation. tube drawing supervisor will follow up with Beena. Endorsed to next shift. Charge nurse aware.
--- NOTE | 2018-10-24 19:00 | NUR ---
NURSE NOTES: Received a report from DEON Moss. Pt is in stable condition. AAOX4. Able to make needs known. No c/o pain/discomfort. Bed in lowest position. Call light within reach. Will continue to monitor. To be transferred to [facility]. Waiting for the ambulance.
--- NOTE | 2018-10-24 19:10 | NUR ---
HAND-OFF: Report given to Katelin.
--- NOTE | 2018-10-24 19:48 | NUR ---
NURSE NOTES: Pt was transferred to [facility]. Pt is AAOX4. Able to make needs known. No c/o pain/discomfort. All belongings with the pt.
[2018-10-24] MEDS ORDERED: Levemir Flexpen SUBQ SCH (21:00)
--- NOTE | 2018-10-27 10:37 | Discharge Summary ---
Discharge Summary Discharge Summary _ DATE OF ADMISSION: 10/23/2018 DATE OF DISCHARGE: 10/24/2018 [facility]: [facility] COURSE: Patient is a 38-year-old female, with history of diabetes and cyclic vomiting syndrome, who presented to ED due to two days of vomiting, with increased back pain and dysuria. She denied fever or chills. She stopped taking her insulin due to poor oral intake. On evaluation at the ED, blood pressure was 164/44, pulse rate 116, RR 20, 95% oxygen saturation on room air. Blood work showed glucose level of 370. There was no leukocytosis, hemoglobin and hematocrit were stable. Sodium was 128, chloride 93 BUN 29, creatinine was 2.5. Anion gap 12. LFTs and lipase were normal. Urinalysis showed 4+ protein, 4+ glucose, 3+ ketones, 2+ blood, negative nitrite, negative leukocyte esterase, 0-2 WBC, 2-4 RBC. Urine hCG was negative. She had chest x-ray and abdominal x-ray that were negative. She was then admitted for uncontrolled diabetes mellitus and acute kidney injury in the setting of cyclic vomiting. She was admitted under observation. She was given IV hydration and was given antiemetics. Kidney function was monitored. Blood sugar was monitored. She was placed on lispro sliding scale. She was started on Levemir 15 units q hs. She was given pain management. She was placed on heparin for DVT prophylaxis. She was eventually transferred to [facility] the following day. FINAL DIAGNOSES: Intractable nausea, vomiting Cyclic vomiting syndrome Kidney injury Type 2 diabetes mellitus, uncontrolled Hyponatremia, likely related to volume depletion and hyperglycemia DISPOSITION: Patient was transferred to acute care hospital. DISCHARGE MEDICATIONS: Refer to Discharge Medication List. I have been assigned to complete a discharge summary on this account, I was not involved with the patient's management. Rosa Bacon NP Oct 27, 2018 10:37
== END 2018-10-24 19:40 | disposition short-term general hospital (02) ==
LOC: EMR 15:45 → EDBEDREQ 17:08 → EDBEDREQSVC 17:08 → INTOOBSV 20:36 → 4E 20:36 → EDBEDREQ 21:24
DX: N17.9 Acute kidney failure, unspecified (principal); G43.A0 Cyclical vomiting, in migraine, not intractable; E11.65 Type 2 diabetes mellitus with hyperglycemia; Z79.4 Long term (current) use of insulin; E87.1 Hypo-osmolality and hyponatremia; I10 Essential (primary) hypertension; G43.909 Migraine, unspecified, not intractable, without status migrainosus; R56.9 Unspecified convulsions; Z88.8 Allergy status to other drugs, medicaments and biological substances
CPT/HCPCS: 36415; 71045; 74018; 80048; 80053; 81003; 81025; 82962; 83036; 83690; 83735; 85025; 96360; 96361; 96372; 96374; 96375; 96376; 99285; G0378; J0696; J1170; J1200; J1644; J1815; J2405; S0028; S5561